=== PATIENT | female | born 1960 | race Caucasian/White ===

== ENCOUNTER 2020-10-17 11:17 | Outpatient (REF) | payer OTHER, SELFPAY | END 2020-10-17 11:18 | disposition home or self-care (01) | LOC: HO.LAB 11:17 | PROVIDERS: Visit Provider Internal Medicine | DX: Z20.828 Contact with and (suspected) exposure to other viral communicable diseases (principal) | CPT/HCPCS: C9803; U0003 ==

== ENCOUNTER 2022-10-20 15:06 | Outpatient (REF) | payer OTHER, SELFPAY ==
--- NOTE | 2022-10-20 09:30 | EMG_ITS ---
Please see scanned EMG / Nerve Conduction Report. MTDD
== END 2022-10-20 15:07 | disposition home or self-care (01) ==
LOC: HO.NEURO 15:06
PROVIDERS: PCP Internal Medicine; Visit Provider Internal Medicine
DX: R20.2 Paresthesia of skin (principal); R20.0 Anesthesia of skin
CPT/HCPCS: 95885; 95910

== ENCOUNTER 2023-08-10 14:25 | Outpatient (AMB) | payer OTHER, SELFPAY ==
[2023-08-10 14:40] VITALS: BP 136/86; PULSE 79; O2SAT 98
--- NOTE | 2023-08-10 14:40 | A.OFFPC_ITS ---
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 Required: No Accompanied by: Self / Same As Patient Allergies azithromycin [From ZITHROMAX] Allergy (Severe, Verified 08/10/23 15:22) RASH/SWELLING amoxicillin [Augmentin] Allergy (Unknown, Verified 08/10/23 15:22) rash, hives clavulanic acid [Augmentin] Allergy (Unknown, Verified 08/10/23 15:22) rash, hives Medication List - Last Reconciled 08/10/23 by Sathish Diaz MD estradiol 0.01%(0.1mg/gram) (Estrace) 1 appful vaginal 3XW 30 days gabapentin 100 mg PO TID 30 days montelukast 10 mg PO BEDTIME 90 days omeprazole 20 mg PO DAILY 90 days sumatriptan succinate 25 mg PO ONCE PRN 90 days Tobacco use date assessed: 08/10/23 Dental Screening Dental Screen Date: 08/10/23 Did you have a dental visit in the last 12 months?: No Did you have a dental problem in the last 6 months where you did not have access to dental care?: No Was dental information given to patient?: No HPI PE HPI Details Patient comes in today for her annual physical examination States that she feels okay She denies any headaches or dizziness Denies any chest pains, no SOB No nausea/vomiting, no abdominal pain No change in bowel habits noted Denies any acute urinary symptoms Had her pap smear / graphic specialist exam last done in November 2022 at [facility] [place] Needs her Estradiol vaginal cream [facility] Medical History Pure hypercholesterolemia Paresthesia Pneumonia due to COVID-19 virus Allergic rhinitis Migraine Asthma Surgical History Status post colonoscopy (~07/16/09) Status post lumbar spinal fusion (~05/16/20) Family History Mother Hypertension Other Substance abuse Social History Housing: House Alcohol intake: current Alcohol intake frequency: holidays/special occasions only Patient Tobacco Use Status: Former Tobacco user e-Cigarette/Vaping Use: Never Used Second Hand Smoke Exposure: Yes service: No Current occupational status: employed Cognitive needs: No Hearing needs: No Vision needs: No Questionnaire PHQ-9 Over the last 2 weeks, how often have you been bothered by any of the following problems? 1. Little interest or pleasure in doing things: several days 2. Feeling down, depressed, or hopeless: not at all 3. Trouble falling or staying asleep, or sleeping too much: not at all 4. Feeling tired or having little energy: not at all 5. Poor appetite or overeating: not at all 6. Feeling bad about yourself - or that you are a failure or have let yourself or your family down: not at all 7. Trouble concentrating on things, such as reading the newspaper or watching television: not at all 8. Moving or speaking so slowly that other people could have noticed. Or the opposite - being so fidgety or restless that you have been moving around a lot more than usual: not at all 9. Thoughts that you would be better off or of hurting yourself in some way: not at all Total score: 1 Depression Screening Interpretation: Negative [id number] - PHQ-9 Billing: Yes Source: Developed by Drs. Rick Ahumada, Sofya Kessler, Zi Roland and colleagues, with an educational sergei from [employer]. Thrive Questionnaire Date Thrive assessed: 08/10/23 I am a: Patient What is your living situation today?: I have a steady place to live Within the past 12 months, did the food you bought not last and you didn't have the money to get more?: Never true Within the past 12 months, did you worry whether your food would run out before you got money to buy more?: Never true Do you have trouble paying for medicines?: No Do you have trouble getting transportation to medical appointments?: No Do you have trouble paying your heating and electricity bill?: No Do you have trouble taking care of your child, family member or friend?: No Do you have trouble with day-to-day activities such as bathing, preparing meals, shopping, managing finances, etc.?: No Are you currently unemployed and looking for a job?: No Are you interested in more education?: No Please select the resources that you would like help with: None Currently or been in a relationship where the following occur: no concerns reported AUDIT C Alcohol Use Questionnaire (AUDIT-C) 1. How often do you have a drink containing alcohol?: Never 3. How often do you have six or more drinks on one occasion?: Never Total Score: 0 Score Reviewed/Action Taken: Yes SVETLANA-7 AMB Questionnaire SVETLANA-7 Date SVETLANA - 7 assessed: 08/10/23 Feeling nervous, anxious, or on edge: 0 = Not at all Not being able to stop or control worryin = Not at all Worrying too much about different things: 0 = Not at all Trouble relaxin = Not at all Being so restless that it is hard to sit still: 0 = Not at all Becoming easily annoyed or irritable: 0 = Not at all Feeling afraid as if something awful might happen: 0 = Not at all Total SVETLANA-7 score (0-4 normal; 5-9 mild; 10-14 moderate; 15-21 severe): 0 Source: Developed by Drs. Rick Ahumada, Sofya Kessler, Zi Roland and colleagues, with an educational sergei from [employer]. Review of Systems Const Denies chills, Denies fatigue, Denies fever(s), Denies headache(s) and Denies malaise Eyes Denies blurry vision, Denies change in vision, Denies irritation and Denies itchy eyes ENT Denies dysphagia, Denies dizziness, Denies otalgia, Denies headache(s), Denies nasal congestion, Denies neck pain, Denies odynophagia, Denies sinus pain and Denies sore throat Card Denies chest pain, Denies rapid heart rate, Denies irregular heart rhythm, Denies palpitations and Denies dyspnea Resp Denies chest congestion, Denies cough, Denies dyspnea and Denies wheezing GI Denies abdominal pain, Denies bloating, Denies constipation, Denies dysphagia, Denies heartburn, Denies diarrhea, Denies nausea, Denies odynophagia and Denies vomiting Denies hematuria, Denies urinary frequency, Denies dysuria, Denies urinary incontinence and Denies urinary urgency Musc Reports back pain, Denies arthralgias, Denies joint swelling, Denies muscle weakness, Denies neck pain and Reports tingling (on and off into the right leg; occasionally in the left leg) Skin/Breast Denies breast pain, Denies breast mass, Denies change in pigmentation, Denies lesions, Denies rash and Denies unusual bruising Neuro Denies dizziness, Denies headache(s), Reports tingling (on and off into the right leg; occasionally in the left leg) and Denies paresthesias Psych Denies anxiety and Denies depression Endo Denies fatigue and Denies palpitations Matt/Lymph Denies easy bruising Aller/Immun Denies itchy eyes and Denies wheezing Physical exam (Primary Care) Vital Signs: Last Vital Signs Pulse 79 08/10/23 14:40 BP 136/86 08/10/23 14:40 Pulse Ox 98 08/10/23 14:40 Oxygen Delivery Method Room Air 08/10/23 14:40 Tobacco/Smoking Status: Tobacco use Status Tobacco use date assessed 08/10/23 08/10/23 14:47 Patient Tobacco Use Status Former Tobacco user 08/10/23 14:47 e-Cigarette/Vaping Use Never Used 08/10/23 14:47 PHQ-9: PHQ-9 Score PHQ-9: Total score 1 08/10/23 15:40 Depression Screening Interpretation: Negative Thrive Assessment: Date of Thrive Assessment Date Thrive assessed 08/10/23 08/10/23 14:47 Currently or been in a relationship where the following occur: no concerns reported Const General: no acute distress, alert and awake Orientation/consciousness: patient oriented x3 HENMT Head: Yes normocephalic and Yes atraumatic Ears: external ears normal, TM's normal bilaterally and EAC's normal General nose exam: No nasal discharge present Face and sinus: Yes normal facial exam and Yes sinuses nontender Teeth and gingiva: dentition normal Throat: Yes posterior oropharynx normal and Yes tonsils normal (no TP congestion) Eyes Eyelids: Yes eyelids normal Conjunctivae: conjunctivae normal Pupils: Equal, round and reactive pupils present EOM: EOMs intact bilaterally Neck Neck: Yes no lymphadenopathy and Yes supple Thyroid: Thyroid normal Resp Auscultation: clear to auscultation bilaterally, no rales and no wheezes Cardio Rate: regular rate Rhythm: regular rhythm Heart sounds: no murmurs GI Palpation (GI): Soft to palpation, nontender and No hepatosplenomegaly present Auscultation: normal bowel sounds General: Yes no CVA tenderness Back/Spine/Pelvis Back: no CVA tenderness Thoracic/Lumbar Spine: thoracic and lumbar spine normal to inspection Skin Lesions: no lesions Rashes: no rashes Neuro General: patient oriented x3, moves all extremities, no focal motor deficits and CN's II-XI intact bilaterally Cranial nerves: Yes Equal, round and reactive pupils present Cognition (Neuro): normal cognition Gait exam (Neuro): Normal gait present Extrem General: Yes no clubbing, cyanosis or edema Assessment and Plan Assessment & Plan (1) Annual physical exam: Code(s): Z00.00 - Encounter for general adult medical examination without abnormal findings Plan: Check labs States that she is up-to-date with annual graphic specialist/ pap smear and screening mammogram - has both of these done at [facility], [place] (2) Pure hypercholesterolemia: Code(s): E78.00 - Pure hypercholesterolemia, unspecified Plan: Reinforced low cholesterol diet Will have patient check his labs and fasting lipids ABBIE follow-up (3) Gastritis: Code(s): K29.70 - Gastritis, unspecified, without bleeding Qualifiers: Gastritis type: unspecified gastritis Chronicity: acute Gastritis bleeding: without bleeding Qualified Code(s): K29.00 - Acute gastritis without bleeding Plan: Reinforced dietary restrictions Continue Omeprazole 20 mg QD PRN (4) Asthma: Code(s): J45.909 - Unspecified asthma, uncomplicated Qualifiers: Asthma severity: moderate Asthma persistence: persistent Asthma complication type: with acute exacerbation Qualified Code(s): J45.41 - Moderate persistent asthma with (acute) exacerbation Plan: Stable Continue Montelukast 10 mg QD and Albuterol HFA 1 to 2 inhalations every 6 hours only as needed (5) Allergic rhinitis: Code(s): J30.9 - Allergic rhinitis, unspecified Qualifiers: Allergic rhinitis trigger: unspecified Allergic rhinitis seasonality: unspecified Qualified Code(s): J30.9 - Allergic rhinitis, unspecified Plan: Montelukast helps with her allergies Also takes OTC Cetirizine 10 mg or Loratadine 10 mg QD PRN (6) Migraine: Code(s): G43.909 - Migraine, unspecified, not intractable, without status migrainosus Qualifiers: Migraine type: unspecified Status migrainosus presence: without status migrainosus Intractability: not intractable Qualified Code(s): G43.909 - Migraine, unspecified, not intractable, without status migrainosus Plan: Stable Continue Sumatriptan 25 mg PRN (7) Paresthesia of right leg: Code(s): R20.2 - Paresthesia of skin Plan: EMG and NCV of the right lower leg done back in September 2022 revealed normal motor and sensory nerve conduction study of the right lower extremity; the EMG of the right L4-S1 innervated muscles are consistent with chronic L4-L5 radiculopathy Continue Gabapentin 100 mg TID for now - states that symptoms have calmed down a lot with Gabapentin Has been referred to [facility] [place] [facility] for further evaluation and management (8) Right foot drop: Code(s): M21.371 - Foot drop, right foot Plan: EMG and NCV done in September 2022 revealed normal motor and sensory nerve conduction study of the right lower extremity but the EMG of the right L4-S1 innervated muscles are consistent with chronic L4-L5 radiculopathy She has been referred to [facility] [place] [facility] for further evaluation and management (9) Atrophic vaginitis: Code(s): N95.2 - Postmenopausal atrophic vaginitis Plan: Continue Estace 0.01% cream apply TIW - Rx refilled (10) Colon cancer screening: Code(s): Z12.11 - Encounter for screening for malignant neoplasm of colon Plan: Patient is due for her repeat colonoscopy but she would like to try doing Cologuard instead at this time - ordered Plan Follow up in 6 months Orders: Orders Lipid Panel 08/10/23 E78.00 - Pure hypercholesterolemia, unspecified, Z00.00 - Encounter for general adult medical examination without abnormal findings Vitamin D 25-OH Total 08/10/23 E55.9 - Vitamin D deficiency, unspecified, Z00.00 - Encounter for general adult medical examination without abnormal findings Vitamin B12 and Folate 08/10/23 E53.8 - Deficiency of other specified B group vitamins, Z00.00 - Encounter for general adult medical examination without abnormal findings MM tomosynthesis screening BI 08/10/23 Z12.31 - Encounter for screening mammogram for malignant neoplasm of breast Complete Blood Count Auto Diff 08/10/23 I10 - Essential (primary) hypertension, Z00.00 - Encounter for general adult medical examination without abnormal findings Comprehensive [place]. Panel Fast 08/10/23 E78.00 - Pure hypercholesterolemia, unspecified, Z00.00 - Encounter for general adult medical examination without abnormal findings TSH reflex Free T4 08/10/23 E78.00 - Pure hypercholesterolemia, unspecified, Z00.00 - Encounter for general adult medical examination without abnormal findings UA CC w/rflx Micro + Cult 08/10/23 R30.0 - Dysuria, Z00.00 - Encounter for general adult medical examination without abnormal findings Referrals Cologuard Test Z12.11 - Encounter for screening for malignant neoplasm of colon, Z12.12 - Encounter for screening for malignant neoplasm of rectum Medications: Refilled estradiol 0.01%(0.1mg/gram) (Estrace) 1 appful vaginal 3XW 30 days 42.5 grams 5RF N95.2 - Postmenopausal atrophic vaginitis Coding Level of Care Code Est Pt Prev Care 40-64y([id number]) Diagnoses Annual physical exam Z00.00 Pure hypercholesterolemia E78.00 Acute gastritis without hemorrhage, unspecified gastritis type K29.00 Gastritis type: unspecified gastritis Chronicity: acute Gastritis bleeding: without bleeding Moderate persistent asthma with acute exacerbation J45.41 Asthma severity: moderate Asthma persistence: persistent Asthma complication type: with acute exacerbation Allergic rhinitis, unspecified seasonality, unspecified trigger J30.9 Allergic rhinitis trigger: unspecified Allergic rhinitis seasonality: unspecified Migraine without status migrainosus, not intractable, unspecified migraine type G43.909 Migraine type: unspecified Status migrainosus presence: without status migrainosus Intractability: not intractable Paresthesia of right leg R20.2 Right foot drop M21.371 Atrophic vaginitis N95.2 Colon cancer screening Z12.11
== END 2023-08-10 15:49 | disposition home or self-care (01) ==
PROVIDERS: Visit Provider Internal Medicine
DX: Z00.00 Encounter for general adult medical examination without abnormal findings (principal); J45.41 Moderate persistent asthma with (acute) exacerbation; G43.909 Migraine, unspecified, not intractable, without status migrainosus; E78.00 Pure hypercholesterolemia, unspecified; K29.00 Acute gastritis without bleeding; J30.9 Allergic rhinitis, unspecified; R20.2 Paresthesia of skin; M21.371 Foot drop, right foot; N95.2 Postmenopausal atrophic vaginitis
CPT/HCPCS: 99396

== ENCOUNTER 2024-03-23 12:11 | Outpatient (AMB) | payer OTHER, SELFPAY ==
--- NOTE | 2024-03-23 12:35 | A.OFFPC_ITS ---
Vital Signs 03/23/24 12:37 Height 4 ft 11 in BMI Reason not done Patient refused/unable BP 128/88 Blood Pressure Location Lt brachial Position Sitting Pulse 86 Pulse Source Pulse Oximeter Pulse Oximetry (%) 97 Oxygen Delivery Method Room Air Intake Visit Reasons: migraine, lumbar DDD Intake Note: Patient is here to follow up on Migraine, LDDD. Talent Acquisition Operations Manager Required: No Human Resources Hr Generalist: Not Required per policy Accompanied by: Self / Same As Patient Allergies azithromycin [From ZITHROMAX] Allergy (Severe, Verified 03/23/24 13:13) RASH/SWELLING amoxicillin [Augmentin] Allergy (Unknown, Verified 03/23/24 13:13) rash, hives clavulanic acid [Augmentin] Allergy (Unknown, Verified 03/23/24 13:13) rash, hives Medication List - Last Reconciled 03/23/24 by Sathish Diaz MD estradiol 0.01%(0.1mg/gram) (Estrace) 1 appful vaginal 3XW 30 days gabapentin 100 mg PO TID 30 days montelukast 10 mg PO BEDTIME 90 days omeprazole 20 mg PO DAILY 90 days sumatriptan succinate 25 mg PO ONCE PRN 90 days Tobacco use date assessed: 03/23/24 Dental Screening Dental Screen Date: 03/23/24 Did you have a dental visit in the last 12 months?: No Did you have a dental problem in the last 6 months where you did not have access to dental care?: No Was dental information given to patient?: Patient has dentist HPI migraine, lumbar DDD HPI Details Patient comes in today for her follow up visit States that she still has her recurrent right-sided low back pain and radicular symptoms but they have been mostly bearable lately States that she was seen by neurosurgery (Dr. Eliecer Arevalo) in [facility] in February or March 2023 and he ordered a repeat MRI of her lumbar spine for further evaluation but her MRI was not approved by her insurance Patient states that as her symptoms seem to have subsided somewhat shortly afterwards, she did not pursue getting an MRI further States that she still has the right foot drop and that this is more prominent later in the day and at night States that she feels okay otherwise and has not been able to get her previously ordered labs done yet States that she also received her Cologuard test kit a while back but has not sent it in yet She denies any headaches or dizziness Denies any chest pains, no increased SOB No nausea/vomiting, no abdominal pain No change in bowel habits noted States that she will need all of her current Rx refilled PFSH Medical History Pure hypercholesterolemia Paresthesia Pneumonia due to COVID-19 virus Allergic rhinitis Migraine Asthma Surgical History Status post colonoscopy (~07/16/09) Status post lumbar spinal fusion (~05/16/20) Family History Mother Hypertension Other Substance abuse Social History Housing: House Alcohol intake: current Alcohol intake frequency: holidays/special occasions only Patient Tobacco Use Status: Former Tobacco user e-Cigarette/Vaping Use: Never Used Second Hand Smoke Exposure: Yes service: No Current occupational status: employed Cognitive needs: No Hearing needs: No Vision needs: Yes (Reading glasses) Questionnaire PHQ-9 Over the last 2 weeks, how often have you been bothered by any of the following problems? 1. Little interest or pleasure in doing things: not at all 2. Feeling down, depressed, or hopeless: not at all 3. Trouble falling or staying asleep, or sleeping too much: not at all 4. Feeling tired or having little energy: not at all 5. Poor appetite or overeating: not at all 6. Feeling bad about yourself - or that you are a failure or have let yourself or your family down: not at all 7. Trouble concentrating on things, such as reading the newspaper or watching television: not at all 8. Moving or speaking so slowly that other people could have noticed. Or the opposite - being so fidgety or restless that you have been moving around a lot more than usual: not at all 9. Thoughts that you would be better off or of hurting yourself in some way: not at all Total score: 0 Depression Screening Interpretation: Negative Depression Screening Done: Yes 57621 - PHQ-9 Billing: Yes Source: Developed by Drs. Rick Ahumada, Sofya Kessler, Zi Roland and colleagues, with an educational sergei from [employer]. Thrive Questionnaire Date Thrive assessed: 03/23/24 I am a: Patient What is your living situation today?: I have a steady place to live Within the past 12 months, did the food you bought not last and you didn't have the money to get more?: Never true Within the past 12 months, did you worry whether your food would run out before you got money to buy more?: Never true Do you have trouble paying for medicines?: No Do you have trouble getting transportation to medical appointments?: No Do you have trouble paying your heating and electricity bill?: No Do you have trouble taking care of your child, family member or friend?: No Do you have trouble with day-to-day activities such as bathing, preparing meals, shopping, managing finances, etc.?: No Are you currently unemployed and looking for a job?: No Are you interested in more education?: No Currently or been in a relationship where the following occur: no concerns repo rted THRIVE Score: 0 AUDIT C Alcohol Use Questionnaire (AUDIT-C) 1. How often do you have a drink containing alcohol?: Never 3. How often do you have six or more drinks on one occasion?: Never Total Score: 0 Score Reviewed/Action Taken: Yes SVETLANA-7 AMB Questionnaire SVETLANA-7 Date SVETLANA - 7 assessed: 03/23/24 Feeling nervous, anxious, or on edge: 0 = Not at all Not being able to stop or control worryin = Not at all Worrying too much about different things: 0 = Not at all Trouble relaxin = Not at all Being so restless that it is hard to sit still: 0 = Not at all Becoming easily annoyed or irritable: 0 = Not at all Feeling afraid as if something awful might happen: 0 = Not at all Total SVETLANA-7 score (0-4 normal; 5-9 mild; 10-14 moderate; 15-21 severe): 0 Source: Developed by Drs. Rick Ahumada, Sofya Kessler, Zi Roland and colleagues, with an educational sergei from [employer]. Review of Systems Const Denies chills, Denies fatigue, Denies fever(s) and Denies headache(s) ENT Denies dysphagia, Denies dizziness, Denies otalgia, Denies headache(s), Denies neck pain, Denies odynophagia and Denies sore throat Card Denies chest pain, Denies rapid heart rate, Denies irregular heart rhythm, Denies palpitations and Denies dyspnea Resp Denies cough, Denies dyspnea and Denies wheezing GI Denies abdominal pain, Denies constipation, Denies dysphagia, Denies heartburn, Denies diarrhea, Denies nausea, Denies odynophagia and Denies vomiting Denies hematuria, Denies urinary frequency, Denies dysuria and Denies urinary urgency Musc Reports back pain, Denies arthralgias, Denies neck pain and Reports tingling (on and off into the right leg; occasionally in the left leg) Skin/Breast Denies rash Neuro Denies dizziness, Denies headache(s), Reports tingling (on and off into the right leg; occasionally in the left leg) and Denies paresthesias Psych Denies anxiety and Denies depression Endo Denies fatigue and Denies palpitations Matt/Lymph Denies easy bruising Aller/Immun Denies wheezing Physical exam (Primary Care) Vital Signs: Last Vital Signs Pulse 86 03/23/24 12:37 BP 128/88 03/23/24 12:37 Pulse Ox 97 03/23/24 12:37 Oxygen Delivery Method Room Air 03/23/24 12:37 Tobacco/Smoking Status: Tobacco use Status Tobacco use date assessed 03/23/24 03/23/24 12:42 Patient Tobacco Use Status Former Tobacco user 03/23/24 12:42 e-Cigarette/Vaping Use Never Used 03/23/24 12:42 PHQ-9: PHQ-9 Score PHQ-9: Total score 0 03/23/24 12:42 Depression Screening Interpretation: Negative Thrive Assessment: Date of Thrive Assessment Date Thrive assessed 03/23/24 03/23/24 12:42 Currently or been in a relationship where the following occur: no concerns reported Const General: no acute distress and alert HENMT Ears: TM's normal bilaterally and EAC's normal Throat: Yes posterior oropharynx normal and Yes tonsils normal (no TP congestion) Neck Neck: Yes no lymphadenopathy and Yes supple Thyroid: Thyroid normal Resp Auscultation: clear to auscultation bilaterally, no rales and no wheezes Cardio Rate: regular rate Rhythm: regular rhythm Heart sounds: no murmurs GI Palpation (GI): Soft to palpation and nontender Auscultation: normal bowel sounds General: Yes no CVA tenderness Back/Spine/Pelvis Back: no CVA tenderness Thoracic/Lumbar Spine: paraspinal muscle tenderness on the right in the mid lumbar and in the lower lumbar and lumbar spinal tenderness Skin Rashes: no rashes Extrem General: Yes no clubbing, cyanosis or edema Assessment and Plan Assessment & Plan (1) Pure hypercholesterolemia: Code(s): E78.00 - Pure hypercholesterolemia, unspecified Plan: Reinforced low cholesterol diet Patient is instructed to go and get her labs and fasting lipids done ABBIE follow-up (2) Gastritis: Code(s): K29.70 - Gastritis, unspecified, without bleeding Qualifiers: Gastritis type: unspecified gastritis Chronicity: acute Gastritis bleeding: without bleeding Qualified Code(s): K29.00 - Acute gastritis without bleeding Plan: Reinforced dietary restrictions Continue Omeprazole 20 mg QD PRN (3) Asthma: Code(s): J45.909 - Unspecified asthma, uncomplicated Qualifiers: Asthma severity: moderate Asthma persistence: persistent Asthma complication type: with acute exacerbation Qualified Code(s): J45.41 - Moderate persistent asthma with (acute) exacerbation Plan: Stable Continue Montelukast 10 mg QD and Albuterol HFA 1 to 2 inhalations every 6 hours only as needed (4) Allergic rhinitis: Code(s): J30.9 - Allergic rhinitis, unspecified Qualifiers: Allergic rhinitis trigger: unspecified Allergic rhinitis seasonality: unspecified Qualified Code(s): J30.9 - Allergic rhinitis, unspecified Plan: Her Montelukast is helping with her allergies She also takes OTC Cetirizine 10 mg or Loratadine 10 mg QD PRN (5) Migraine: Code(s): G43.909 - Migraine, unspecified, not intractable, without status migrainosus Qualifiers: Migraine type: unspecified Status migrainosus presence: without status migrainosus Intractability: not intractable Qualified Code(s): G43.909 - Migraine, unspecified, not intractable, without status migrainosus Plan: Stable Continue Sumatriptan 25 mg PRN (6) Paresthesia of right leg: Code(s): R20.2 - Paresthesia of skin Plan: EMG and NCV of the right lower leg done back in September 2022 revealed normal motor and sensory nerve conduction study of the right lower extremity; the EMG of the right L4-S1 innervated muscles are consistent with chronic L4-L5 radiculopathy Continue Gabapentin 100 mg TID - states that symptoms have calmed down a lot with Gabapentin She has been referred to and is also now seeing [facility] for follow up (7) Right foot drop: Code(s): M21.371 - Foot drop, right foot Plan: EMG and NCV done in September 2022 revealed normal motor and sensory nerve conduction study of the right lower extremity but the EMG of the right L4-S1 innervated muscles are consistent with chronic L4-L5 radiculopathy She is now going to [facility] for neurology follow up (8) Atrophic vaginitis: Code(s): N95.2 - Postmenopausal atrophic vaginitis Plan: Continue Estace 0.01% cream apply TIW - Rx refilled Plan To return in 6 months for her next annual physical examination Medications: Refilled estradiol 0.01%(0.1mg/gram) (Estrace) 1 appful vaginal 3XW 30 days 42.5 grams 5RF N95.2 - Postmenopausal atrophic vaginitis montelukast 10 mg PO BEDTIME 90 days 90 tabs 3RF omeprazole 20 mg PO DAILY 90 days 90 caps 0RF gabapentin 100 mg PO TID 30 days 90 caps 0RF sumatriptan succinate take as instructed. may take 2nd dose after 2 hours if needed. Max of 2 tablets in 24 hours 25 mg PO ONCE 90 days PRN 40 tabs 3RF migraine Coding Level of Care Code Est Pt Level 4 (92422) Diagnoses Pure hypercholesterolemia E78.00 Acute gastritis without hemorrhage, unspecified gastritis type K29.00 Gastritis type: unspecified gastritis Chronicity: acute Gastritis bleeding: without bleeding Moderate persistent asthma with acute exacerbation J45.41 Asthma severity: moderate Asthma persistence: persistent Asthma complication type: with acute exacerbation Allergic rhinitis, unspecified seasonality, unspecified trigger J30.9 Allergic rhinitis trigger: unspecified Allergic rhinitis seasonality: unspecified Migraine without status migrainosus, not intractable, unspecified migraine type G43.909 Migraine type: unspecified Status migrainosus presence: without status migrainosus Intractability: not intractable Paresthesia of right leg R20.2 Right foot drop M21.371 Atrophic vaginitis N95.2
[2024-03-23 12:37] VITALS: BP 128/88; PULSE 86; O2SAT 97
== END 2024-03-23 13:31 | disposition home or self-care (01) ==
PROVIDERS: PCP Internal Medicine; Visit Provider Internal Medicine
DX: E78.00 Pure hypercholesterolemia, unspecified (principal); K29.00 Acute gastritis without bleeding; J45.41 Moderate persistent asthma with (acute) exacerbation; J30.9 Allergic rhinitis, unspecified; G43.909 Migraine, unspecified, not intractable, without status migrainosus; R20.2 Paresthesia of skin; M21.371 Foot drop, right foot; N95.2 Postmenopausal atrophic vaginitis
CPT/HCPCS: 99214

== ENCOUNTER 2024-10-02 16:26 | Outpatient (AMB) | payer OTHER, SELFPAY ==
[2024-10-02 16:26] VITALS: BP 122/84; PULSE 82; O2SAT 97
--- NOTE | 2024-10-02 16:26 | MHC.PC.OV ---
Vital Signs 10/02/24 16:26 Height 4 ft 11 in BP 122/84 Blood Pressure Location Lt brachial Position Sitting Pulse 82 Pulse Source Pulse Oximeter Pulse Oximetry (%) 97 Oxygen Delivery Method Room Air Intake Visit Reasons: annual PE Special Events Coordinator Required: No Accompanied by: Self / Same As Patient Allergies azithromycin [From ZITHROMAX] Allergy (Severe, Verified 10/02/24 17:01) RASH/SWELLING amoxicillin [Augmentin] Allergy (Unknown, Verified 10/02/24 17:01) rash, hives clavulanic acid [Augmentin] Allergy (Unknown, Verified 10/02/24 17:01) rash, hives Medication List - Last Reconciled 10/02/24 by Sathish Diaz MD estradiol 0.01%(0.1mg/gram) (Estrace) 1 appful vaginal 3XW 30 days gabapentin 100 mg PO TID 30 days montelukast 10 mg PO BEDTIME 90 days omeprazole 20 mg PO DAILY 90 days sumatriptan succinate 25 mg PO ONCE PRN 90 days Tobacco use date assessed: 10/02/24 Dental Screening Dental Screen Date: 10/02/24 Did you have a dental visit in the last 12 months?: No Did you have a dental problem in the last 6 months where you did not have access to dental care?: No Was dental information given to patient?: No HPI annual PE HPI Details Patient comes in today for her annual physical examination States that she sprained her left ankle months ago and she currently still has on and off pain in her left ankle pain She has also been experiencing recurrent tingling sensation in the right hand as well as pain over her right wrist States that she still has recurrent right-sided low back pain and radicular symptoms as well but they have been mostly bearable lately Still has the right foot drop that this is more prominent later in the day and at night States that she feels okay otherwise She denies any headaches or dizziness Denies any chest pains, no increased shortness of breath No nausea/vomiting, no abdominal pain No change in bowel habits noted She denies any acute urinary symptoms She had her follow-up labs done at [facility] back in March 2024 She had her annual pap smear and gynecology exam done earlier this year Her annual mammogram was last done in November 2023 Her last screening colonoscopy was done in 2008 and she asked for Cologuard testing last year but she never got the test done and it - states that she would like to have her Cologuard test ordered again [facility] Medical History (Updated 10/07/24 @ 16:16 by Sathish Diaz MD) Lumbar degenerative disc disease Osteoporosis Chronic right-sided lumbar radiculopathy Pure hypercholesterolemia Paresthesia Pneumonia due to COVID-19 virus Allergic rhinitis Migraine Asthma Surgical History Status post colonoscopy (~07/16/09) Status post lumbar spinal fusion (~05/16/20) Family History Mother Hypertension Other Substance abuse Social History Housing: House Alcohol intake: current Alcohol intake frequency: holidays/special occasions only Patient Tobacco Use Status: Former Tobacco user e-Cigarette/Vaping Use: Never Used Second Hand Smoke Exposure: Yes service: No Current occupational status: employed Cognitive needs: No Hearing needs: No Vision needs: Yes (Reading glasses) Questionnaire PHQ-9 Over the last 2 weeks, how often have you been bothered by any of the following problems? 1. Little interest or pleasure in doing things: not at all 2. Feeling down, depressed, or hopeless: not at all 3. Trouble falling or staying asleep, or sleeping too much: not at all 4. Feeling tired or having little energy: not at all 5. Poor appetite or overeating: not at all 6. Feeling bad about yourself - or that you are a failure or have let yourself or your family down: not at all 7. Trouble concentrating on things, such as reading the newspaper or watching television: not at all 8. Moving or speaking so slowly that other people could have noticed. Or the opposite - being so fidgety or restless that you have been moving around a lot more than usual: not at all 9. Thoughts that you would be better off or of hurting yourself in some way: not at all Total score: 0 Depression Screening Interpretation: Negative Depression Screening Done: Yes 62945 - PHQ-9 Billing: Yes Source: Developed by Sofya Niño, Zi Roland and colleagues, with an educational sergei from [employer]. Thrive Questionnaire Date Thrive assessed: 10/02/24 I am a: Patient What is your living situation today?: I have a steady place to live Within the past 12 months, did the food you bought not last and you didn't have the money to get more?: Never true Within the past 12 months, did you worry whether your food would run out before you got money to buy more?: Never true Do you have trouble paying for medicines?: No Do you have trouble getting transportation to medical appointments?: No Do you have trouble paying your heating and electricity bill?: No Do you have trouble taking care of your child, family member or friend?: No Do you have trouble with day-to-day activities such as bathing, preparing meals, shopping, managing finances, etc.?: No Are you currently unemployed and looking for a job?: No Are you interested in more education?: No Please select the resources that you would like help with: None Currently or been in a relationship where the following occur: No concerns reported THRIVE Score: 0 AUDIT C Alcohol Use Questionnaire (AUDIT-C) 1. How often do you have a drink containing alcohol?: Never 3. How often do you have six or more drinks on one occasion?: Never Total Score: 0 Score Reviewed/Action Taken: Yes SVETLANA-7 AMB Questionnaire SVETLANA-7 Date SVETLANA - 7 assessed: 10/02/24 Feeling nervous, anxious, or on edge: 0 = Not at all Not being able to stop or control worryin = Not at all Worrying too much about different things: 0 = Not at all Trouble relaxin = Not at all Being so restless that it is hard to sit still: 0 = Not at all Becoming easily annoyed or irritable: 0 = Not at all Feeling afraid as if something awful might happen: 0 = Not at all Total SEVTLANA-7 score (0-4 normal; 5-9 mild; 10-14 moderate; 15-21 severe): 0 Source: Developed by Sofya Niño, Zi Roland and colleagues, with an educational sergei from [employer]. Review of Systems Const Denies chills, Denies fatigue, Denies fever(s) and Denies headache(s) Eyes Denies blurry vision, Denies change in vision, Denies irritation and Denies itchy eyes ENT Denies dysphagia, Denies dizziness, Denies otalgia, Denies headache(s), Denies neck pain, Denies odynophagia and Denies sore throat Card Denies chest pain, Denies rapid heart rate, Denies irregular heart rhythm, Denies palpitations and Denies dyspnea Resp Denies chest congestion, Denies cough, Denies dyspnea and Denies wheezing GI Denies abdominal pain, Denies constipation, Denies dysphagia, Denies heartburn, Denies diarrhea, Denies nausea, Denies odynophagia and Denies vomiting Denies hematuria, Denies urinary frequency, Denies dysuria and Denies urinary urgency Musc Reports back pain, Reports arthralgias (left ankle, right wrist - see HPI), Denies neck pain and Reports tingling (on and off into the right leg; occasionally in the left leg) Skin/Breast Denies lesions and Denies rash Neuro Denies dizziness, Denies headache(s), Reports tingling (on and off into the right leg; occasionally in the left leg) and Denies paresthesias Psych Denies anxiety and Denies depression Endo Denies fatigue and Denies palpitations Matt/Lymph Denies easy bruising Aller/Immun Denies itchy eyes and Denies wheezing Physical exam (Primary Care) Vital Signs: Last Vital Signs Pulse 82 10/02/24 16:26 BP 122/84 10/02/24 16:26 Pulse Ox 97 10/02/24 16:26 Oxygen Delivery Method Room Air 10/02/24 16:26 Tobacco/Smoking Status: Tobacco use Status Tobacco use date assessed 10/02/24 10/02/24 16:28 Patient Tobacco Use Status Former Tobacco user 10/02/24 16:28 e-Cigarette/Vaping Use Never Used 10/02/24 16:28 PHQ-9: PHQ-9 Score PHQ-9: Total score 0 10/02/24 16:56 Depression Screening Interpretation: Negative Thrive Assessment: Date of Thrive Assessment Date Thrive assessed 10/02/24 10/02/24 16:28 Currently or been in a relationship where the following occur: No concerns reported Const General: no acute distress, alert and awake Orientation/consciousness: patient oriented x3 HENMT Head: Yes normocephalic and Yes atraumatic Ears: external ears normal, TM's normal bilaterally and EAC's normal General nose exam: No nasal discharge present Face and sinus: Yes normal facial exam and Yes sinuses nontender Teeth and gingiva: dentition normal Throat: Yes posterior oropharynx normal and Yes tonsils normal (no TP congestion) Eyes Eyelids: Yes eyelids normal Conjunctivae: conjunctivae normal Pupils: Equal, round and reactive pupils present EOM: EOMs intact bilaterally Neck Neck: Yes no lymphadenopathy and Yes supple Thyroid: Thyroid normal Resp Auscultation: clear to auscultation bilaterally, no rales and no wheezes Cardio Rate: regular rate Rhythm: regular rhythm Heart sounds: no murmurs GI Palpation (GI): Soft to palpation, nontender and No hepatosplenomegaly present Auscultation: normal bowel sounds General: Yes no CVA tenderness Back/Spine/Pelvis Back: no CVA tenderness Thoracic/Lumbar Spine: paraspinal muscle tenderness on the right in the mid lumbar and in the lower lumbar and lumbar spinal tenderness Skin Lesions: no lesions Rashes: no rashes Neuro General: patient oriented x3, moves all extremities, no focal motor deficits and CN's II-XI intact bilaterally Cranial nerves: Yes Equal, round and reactive pupils present Cognition (Neuro): normal cognition Gait exam (Neuro): Normal gait present Extrem General: Yes no clubbing, cyanosis or edema Coding Level of Care Code Est Pt Prev Care 40-64y(04536) Diagnoses Annual physical exam Z00.00 Pure hypercholesterolemia E78.00 Acute gastritis without hemorrhage, unspecified gastritis type K29.00 Gastritis type: unspecified gastritis Chronicity: acute Gastritis bleeding: without bleeding Moderate persistent asthma with acute exacerbation J45.41 Asthma severity: moderate Asthma persistence: persistent Asthma complication type: with acute exacerbation Allergic rhinitis, unspecified seasonality, unspecified trigger J30.9 Allergic rhinitis trigger: unspecified Allergic rhinitis seasonality: unspecified Migraine without status migrainosus, not intractable, unspecified migraine type G43.909 Migraine type: unspecified Status migrainosus presence: without status migrainosus Intractability: not intractable Degeneration of intervertebral disc of lumbar region with discogenic back pain and lower extremity pain M51.362 Disc-related pain type: discogenic back pain and lower extremity pain Chronic right-sided lumbar radiculopathy M54.16 Right foot drop M21.371 Age-related osteoporosis without current pathological fracture M81.0 Osteoporosis type: age-related Presence of current pathological fracture: without current pathological fracture Atrophic vaginitis N95.2 Colon cancer screening Z12.11 Additional Codes PHQ-9 - 80877 - PHQ-9 Billing: Yes ([id number]) Assessment & Plan Assessment & Plan (1) Annual physical exam: Code(s): Z00.00 - Encounter for general adult medical examination without abnormal findings Category: Medical Plan: Results of her labs done back in March 2024 reviewed and discussed with patient She is up-to-date with her yearly gynecology exam and pap smear She is due for her colon cancer screening and she prefers to try doing a Cologuard test again She will also be due for her annual mammography and we will order it now and this can be done when it is due in early November 2024 (2) Pure hypercholesterolemia: Code(s): E78.00 - Pure hypercholesterolemia, unspecified Category: Medical Plan: Results of her labs done back in March 2024 reviewed and discussed with patient Reinforced low-cholesterol diet Will have patient recheck her labs and fasting lipids in 6 months for follow-up (3) Gastritis: Code(s): K29.70 - Gastritis, unspecified, without bleeding Category: Medical Qualifiers: Gastritis type: unspecified gastritis Chronicity: acute Gastritis bleeding: without bleeding Qualified Code(s): K29.00 - Acute gastritis without bleeding Plan: Reinforced dietary restrictions Continue Omeprazole 20 mg QD PRN (4) Asthma: Code(s): J45.909 - Unspecified asthma, uncomplicated Category: Medical Qualifiers: Asthma severity: moderate Asthma persistence: persistent Asthma complication type: with acute exacerbation Qualified Code(s): J45.41 - Moderate persistent asthma with (acute) exacerbation Plan: Stable Continue Montelukast 10 mg QD and Albuterol HFA 1 to 2 inhalations every 6 hours only as needed (5) Allergic rhinitis: Code(s): J30.9 - Allergic rhinitis, unspecified Category: Medical Qualifiers: Allergic rhinitis trigger: unspecified Allergic rhinitis seasonality: unspecified Qualified Code(s): J30.9 - Allergic rhinitis, unspecified Plan: Her Montelukast is helping with her allergies She also takes OTC Cetirizine 10 mg or Loratadine 10 mg QD PRN (6) Migraine: Code(s): G43.909 - Migraine, unspecified, not intractable, without status migrainosus Category: Medical Qualifiers: Migraine type: unspecified Status migrainosus presence: without status migrainosus Intractability: not intractable Qualified Code(s): G43.909 - Migraine, unspecified, not intractable, without status migrainosus Plan: Stable Reinforced avoidance of any potential migraine triggers Continue Sumatriptan 25 mg PRN (7) Lumbar degenerative disc disease: Code(s): M51.369 - Other intervertebral disc degeneration, lumbar region without mention of lumbar back pain or lower extremity pain Category: Medical Qualifiers: Disc-related pain type: discogenic back pain and lower extremity pain Qualified Code(s): M51.362 - Other intervertebral disc degeneration, lumbar region with discogenic back pain and lower extremity pain Plan: Reinforced activity and weight lifting restrictions MRI of the lumbar spine done back in 2017 revealed (+) bilateral L5 spondylolysis with grade 1 anterolisthesis of L5 on S1. There is [id number] bilateral foraminal stenosis abutting the exiting L5 nerve root. There is also a left foraminal to extraforaminal disc protrusion potentially abutting the extraforaminal exiting left L3 nerve root at L3-L4 and there is mild levoconvex lumbar scoliosis noted Due to her increasing low back pain and right lumbar radicular symptoms, will try sending her for repeat MRI of the lumbar spine for further evaluation (8) Chronic right-sided lumbar radiculopathy: Code(s): M54.16 - Radiculopathy, lumbar region Category: Medical Plan: EMG and NCV of the right lower leg done back in September 2022 revealed normal motor and sensory nerve conduction study of the right lower extremity; the EMG of the right L4-S1 innervated muscles are consistent with chronic L4-L5 radiculopathy Continue Gabapentin 100 mg TID - states that symptoms have calmed down a lot with Gabapentin She has been referred to and is also now seeing [facility] for follow up regularly (9) Right foot drop: Code(s): M21.371 - Foot drop, right foot Category: Medical Plan: EMG and NCV done in September 2022 revealed normal motor and sensory nerve conduction study of the right lower extremity but the EMG of the right L4-S1 innervated muscles are consistent with chronic L4-L5 radiculopathy She is now going to [facility] for neurology follow up (10) Osteoporosis: Code(s): M81.0 - Age-related osteoporosis without current pathological fracture Category: Medical Qualifiers: Osteoporosis type: age-related Presence of current pathological fracture: without current pathological fracture Qualified Code(s): M81.0 - Age-related osteoporosis without current pathological fracture Plan: Her bone density scan done back in 2018 revealed (+) osteoporosis based on the lowest T-score of-2.6 in the lumbar spine Reinforced fall precautions Patient is again reminded to continue taking her daily vitamin-D supplements and oral calcium supplements Will send her for repeat bone density for follow-up she is overdue for this (11) Atrophic vaginitis: Code(s): N95.2 - Postmenopausal atrophic vaginitis Category: Medical Plan: Continue Estace 0.01% cream apply TIW (12) Colon cancer screening: Code(s): Z12.11 - Encounter for screening for malignant neoplasm of colon Category: Medical Plan: Patient declines referral for screening colonoscopy but agrees to have a Cologuard test done again - Cologuard ordered Plan Follow up in 6 months Orders: Orders MR lumbar spine wo con 10/02/24 M54.16 - Radiculopathy, lumbar region Comprehensive Victor. Panel Fast 6 Months E78.00 - Pure hypercholesterolemia, unspecified Vitamin D 25-OH Total 6 Months E55.9 - Vitamin D deficiency, unspecified Collagen Crosslinks NTX 6 Months M81.0 - Age-related osteoporosis without current pathological fracture MM tomosynthesis screening BI 24 Z12.31 - Encounter for screening mammogram for malignant neoplasm of breast XR DEXA axial skeleton 24 M81.0 - Age-related osteoporosis without current pathological fracture, Z78.0 - Asymptomatic menopausal state Complete Blood Count Auto Diff 6 Months D64.9 - Anemia, unspecified Lipid Panel 6 Months E78.00 - Pure hypercholesterolemia, unspecified TSH reflex Free T4 6 Months E78.00 - Pure hypercholesterolemia, unspecified UA CC w/rflx Micro + Cult 6 Months R30.0 - Dysuria Referrals Cologuard Test Z12.11 - Encounter for screening for malignant neoplasm of colon, Z12.12 - Encounter for screening for malignant neoplasm of rectum Medications: Refilled estradiol 0.01%(0.1mg/gram) (Estrace) 1 appful vaginal 3XW 30 days 42.5 grams 5RF N95.2 - Postmenopausal atrophic vaginitis gabapentin 100 mg PO TID 30 days 90 caps 1RF
== END 2024-10-02 17:23 | disposition home or self-care (01) ==
PROVIDERS: PCP Internal Medicine; Visit Provider Internal Medicine
DX: Z00.00 Encounter for general adult medical examination without abnormal findings (principal); E78.00 Pure hypercholesterolemia, unspecified; K29.00 Acute gastritis without bleeding; J45.41 Moderate persistent asthma with (acute) exacerbation; J30.9 Allergic rhinitis, unspecified; G43.909 Migraine, unspecified, not intractable, without status migrainosus; M51.362 Other intervertebral disc degeneration, lumbar region with discogenic back pain and lower extremity pain; M54.16 Radiculopathy, lumbar region; M21.371 Foot drop, right foot; M81.0 Age-related osteoporosis without current pathological fracture; N95.2 Postmenopausal atrophic vaginitis; Z12.11 Encounter for screening for malignant neoplasm of colon

== ENCOUNTER → 2024-10-02 16:26 | Outpatient (BNVA) | payer OTHER, SELFPAY | PROVIDERS: PCP Internal Medicine; Visit Provider Internal Medicine | DX: Z00.00 Encounter for general adult medical examination without abnormal findings (principal); E78.00 Pure hypercholesterolemia, unspecified; K29.00 Acute gastritis without bleeding; J45.41 Moderate persistent asthma with (acute) exacerbation; J30.9 Allergic rhinitis, unspecified; G43.909 Migraine, unspecified, not intractable, without status migrainosus; M51.362 Other intervertebral disc degeneration, lumbar region with discogenic back pain and lower extremity pain; M54.16 Radiculopathy, lumbar region; M21.371 Foot drop, right foot; M81.0 Age-related osteoporosis without current pathological fracture; N95.2 Postmenopausal atrophic vaginitis; Z79.899 Other long term (current) drug therapy | CPT/HCPCS: 96127 ==

== ENCOUNTER 2025-03-25 16:16 | Outpatient (AMB) | payer OTHER, SELFPAY ==
[2025-03-25 16:49] VITALS: BP 130/80; PULSE 90; O2SAT 99
--- NOTE | 2025-03-25 16:49 | A.OFFPC_ITS ---
Vital Signs 03/25/25 16:49 Height 4 ft 11 in BMI Reason not done Patient refused/unable BP 130/80 Blood Pressure Location Lt brachial Position Sitting Pulse 90 Pulse Source Pulse Oximeter Pulse Oximetry (%) 99 Oxygen Delivery Method Room Air Intake Visit Reasons: 6 month f/u Band Sewer Required: No Accompanied by: Self / Same As Patient Allergies azithromycin [From ZITHROMAX] Allergy (Severe, Verified 03/25/25 17:33) RASH/SWELLING amoxicillin [Augmentin] Allergy (Unknown, Verified 03/25/25 17:33) rash, hives clavulanic acid [Augmentin] Allergy (Unknown, Verified 03/25/25 17:33) rash, hives Medication List - Last Reconciled 03/25/25 by Sathish Diaz MD estradiol 0.01%(0.1mg/gram) (Estrace) 1 appful vaginal 3XW 30 days fluticasone propion-salmeterol 250-50 mcg/dose (Wixela Inhub) 1 inh inhalation BID gabapentin 100 mg PO TID 30 days montelukast 10 mg PO BEDTIME 90 days omeprazole 20 mg PO DAILY 90 days sumatriptan succinate 25 mg PO ONCE PRN 90 days Tobacco use date assessed: 03/25/25 Dental Screening Dental Screen Date: 03/25/25 HPI 6 month f/u HPI Details Patient comes in today for her follow up visit States that she went to the walk-in at [facility] a couple of months ago for increasing cough and congestion and SOB States that the first time he went there, she was prescribed an unrecalled Abx She was started on Wixela when she went back a second time a few days later for the same complaints Patient states that she is currently feeling better and that her cough has mostly improved Adds that she has been experiencing on and off dizziness for a while now Recalls using some motion sickness patches when she was on a cruise in the past that helped a lot with her dizziness and would like to see if she can try them again now to help with her symptoms She denies any headaches Denies any chest pains, no increased shortness of breath No nausea/vomiting, no abdominal pain No change in bowel habits noted Needs a couple of her Rx refilled She was not able to get her follow up labs done prior to her appointment today [facility] Medical History Lumbar degenerative disc disease Osteoporosis Chronic right-sided lumbar radiculopathy Pure hypercholesterolemia Paresthesia Pneumonia due to COVID-19 virus Allergic rhinitis Migraine Asthma Surgical History Status post colonoscopy (~07/16/09) Status post lumbar spinal fusion (~05/16/20) Family History Mother Hypertension Other Substance abuse Social History Housing: House Alcohol intake: current Alcohol intake frequency: holidays/special occasions only Patient Tobacco Use Status: Former Tobacco user e-Cigarette/Vaping Use: Never Used Second Hand Smoke Exposure: Yes service: No Current occupational status: employed Cognitive needs: No Hearing needs: No Vision needs: Yes (Reading glasses) Questionnaire PHQ-9 Over the last 2 weeks, how often have you been bothered by any of the following problems? 1. Little interest or pleasure in doing things: not at all 2. Feeling down, depressed, or hopeless: not at all 3. Trouble falling or staying asleep, or sleeping too much: not at all 4. Feeling tired or having little energy: not at all 5. Poor appetite or overeating: not at all 6. Feeling bad about yourself - or that you are a failure or have let yourself or your family down: not at all 7. Trouble concentrating on things, such as reading the newspaper or watching television: not at all 8. Moving or speaking so slowly that other people could have noticed. Or the opposite - being so fidgety or restless that you have been moving around a lot more than usual: not at all 9. Thoughts that you would be better off or of hurting yourself in some way: not at all Total score: 0 Depression Screening Interpretation: Negative Depression Screening Done: Yes 42681 - PHQ-9 Billing: Yes Source: Developed by Drs. Rick Ahumada, Sofya Kessler, Zi Roland and colleagues, with an educational sergei from [employer]. Thrive Questionnaire Date Thrive assessed: 03/25/25 I am a: Patient What is your living situation today?: I have a steady place to live Within the past 12 months, did the food you bought not last and you didn't have the money to get more?: Never true Within the past 12 months, did you worry whether your food would run out before you got money to buy more?: Never true Do you have trouble paying for medicines?: I choose not to answer this question Do you have trouble getting transportation to medical appointments?: No Do you have trouble paying your heating and electricity bill?: No Do you have trouble taking care of your child, family member or friend?: No Do you have trouble with day-to-day activities such as bathing, preparing meals, shopping, managing finances, etc.?: No Are you currently unemployed and looking for a job?: No Are you interested in more education?: No Please select the resources that you would like help with: None Currently or been in a relationship where the following occur: I choose not to answer THRIVE Score: 0 AUDIT C Alcohol Use Questionnaire (AUDIT-C) 1. How often do you have a drink containing alcohol?: Monthly or less 2. How many drinks containing alcohol do you have on a typical day when you are drinking?: 1 or 2 3. How often do you have six or more drinks on one occasion?: Never Total Score: 1 Score Reviewed/Action Taken: Yes SVETLANA-7 AMB Questionnaire SVETLANA-7 Date SVETLANA - 7 assessed: 03/25/25 Feeling nervous, anxious, or on edge: 0 = Not at all Not being able to stop or control worryin = Not at all Worrying too much about different things: 0 = Not at all Trouble relaxin = Several days Being so restless that it is hard to sit still: 0 = Not at all Becoming easily annoyed or irritable: 0 = Not at all Feeling afraid as if something awful might happen: 0 = Not at all Total SVETLANA-7 score (0-4 normal; 5-9 mild; 10-14 moderate; 15-21 severe): 1 Source: Developed by Drs. Rick Ahumada, Sofya Kessler, Zi Roland and colleagues, with an educational sergei from [employer]. Review of Systems Const Denies chills, Denies fatigue, Denies fever(s) and Denies headache(s) ENT Denies dysphagia, Reports dizziness (on and off), Denies otalgia, Denies headache(s), Denies neck pain, Denies odynophagia and Denies sore throat Card Denies chest pain, Denies rapid heart rate, Denies irregular heart rhythm, Denies palpitations and Denies dyspnea Resp Denies chest congestion, Reports cough (on and off), Denies dyspnea and Denies wheezing GI Denies abdominal pain, Denies constipation, Denies dysphagia, Denies heartburn, Denies diarrhea, Denies nausea, Denies odynophagia and Denies vomiting Denies hematuria, Denies urinary frequency, Denies dysuria and Denies urinary urgency Musc Reports back pain, Denies neck pain, Reports numbness (right leg - chronic) and Reports tingling (on and off in the right leg; occasionally in the left leg) Skin/Breast Denies lesions and Denies rash Neuro Reports dizziness (on and off), Denies headache(s), Reports numbness (right leg - chronic), Reports tingling (on and off in the right leg; occasionally in the left leg) and Denies paresthesias Psych Denies anxiety and Denies depression Endo Denies fatigue and Denies palpitations Matt/Lymph Denies easy bruising Aller/Immun Denies wheezing Physical exam (Primary Care) Vital Signs: Last Vital Signs Pulse 90 03/25/25 16:49 BP 130/80 03/25/25 16:49 Pulse Ox 99 03/25/25 16:49 Oxygen Delivery Method Room Air 03/25/25 16:49 Tobacco/Smoking Status: Tobacco use Status Tobacco use date assessed 03/25/25 03/25/25 16:56 Patient Tobacco Use Status Former Tobacco user 03/25/25 16:56 e-Cigarette/Vaping Use Never Used 03/25/25 16:56 PHQ-9: PHQ-9 Score PHQ-9: Total score 0 04/01/25 06:14 Depression Screening Interpretation: Negative Thrive Assessment: Date of Thrive Assessment Date Thrive assessed 03/25/25 03/25/25 16:56 Currently or been in a relationship where the following occur: I choose not to answer Const General: no acute distress and alert HENMT Ears: TM's normal bilaterally and EAC's normal Throat: Yes posterior oropharynx normal and Yes tonsils normal (no TP congest ion) Neck Neck: Yes no lymphadenopathy and Yes supple Thyroid: Thyroid normal Resp Auscultation: no rales, rhonchi (occasional) throughout, no wheezes and diminished lung sounds (slightly) bilateral Cardio Rate: regular rate Rhythm: regular rhythm Heart sounds: no murmurs GI Palpation (GI): Soft to palpation and nontender Auscultation: normal bowel sounds General: Yes no CVA tenderness Back/Spine/Pelvis Back: no CVA tenderness Thoracic/Lumbar Spine: paraspinal muscle tenderness on the right in the mid lumbar and in the lower lumbar and lumbar spinal tenderness Skin Rashes: no rashes Extrem General: Yes no clubbing, cyanosis or edema Coding Level of Care Code Est Pt Level 4 (18560) Diagnoses Pure hypercholesterolemia E78.00 Acute gastritis without hemorrhage, unspecified gastritis type K29.00 Gastritis type: unspecified gastritis Chronicity: acute Gastritis bleeding: without bleeding Moderate persistent asthma with acute exacerbation J45.41 Asthma severity: moderate Asthma persistence: persistent Asthma complication type: with acute exacerbation Allergic rhinitis, unspecified seasonality, unspecified trigger J30.9 Allergic rhinitis trigger: unspecified Allergic rhinitis seasonality: unspecified Migraine without status migrainosus, not intractable, unspecified migraine type G43.909 Migraine type: unspecified Status migrainosus presence: without status migrainosus Intractability: not intractable Dizziness R42 Degeneration of intervertebral disc of lumbar region with discogenic back pain and lower extremity pain M51.362 Disc-related pain type: discogenic back pain and lower extremity pain Chronic right-sided lumbar radiculopathy M54.16 Right foot drop M21.371 Age-related osteoporosis without current pathological fracture M81.0 Osteoporosis type: age-related Presence of current pathological fracture: without current pathological fracture Atrophic vaginitis N95.2 Additional Codes PHQ-9 - 82698 - PHQ-9 Billing: Yes ([id number]) Assessment & Plan Assessment & Plan (1) Pure hypercholesterolemia: Code(s): E78.00 - Pure hypercholesterolemia, unspecified Category: Medical Plan: Patient was not able to get her follow up labs done yet - have again advised her to try to get these done ABBIE Reinforced low-cholesterol diet (2) Gastritis: Code(s): K29.70 - Gastritis, unspecified, without bleeding Category: Medical Qualifiers: Gastritis type: unspecified gastritis Chronicity: acute Gastritis bleeding: without bleeding Qualified Code(s): K29.00 - Acute gastritis without bleeding Plan: Reinforced dietary restrictions Continue Omeprazole 20 mg QD PRN (3) Asthma: Code(s): J45.909 - Unspecified asthma, uncomplicated Category: Medical Qualifiers: Asthma severity: moderate Asthma persistence: persistent Asthma complication type: with acute exacerbation Qualified Code(s): J45.41 - Moderate persistent asthma with (acute) exacerbation Plan: She's had frequent exacerbations/flare ups of her asthma over the past few months but this now appears to be getting back under control Continue Montelukast 10 mg QD and Albuterol HFA 1 to 2 inhalations every 6 hours only as needed (4) Allergic rhinitis: Code(s): J30.9 - Allergic rhinitis, unspecified Category: Medical Qualifiers: Allergic rhinitis trigger: unspecified Allergic rhinitis seasonality: unspecified Qualified Code(s): J30.9 - Allergic rhinitis, unspecified Plan: Her Montelukast is also helping with her allergies She also takes OTC Cetirizine 10 mg or Loratadine 10 mg QD PRN (5) Migraine: Code(s): G43.909 - Migraine, unspecified, not intractable, without status migrainosus Category: Medical Qualifiers: Migraine type: unspecified Status migrainosus presence: without status migrainosus Intractability: not intractable Qualified Code(s): G43.909 - Migraine, unspecified, not intractable, without status migrainosus Plan: Stable/controlled Reinforced avoidance of all potential migraine triggers Continue Sumatriptan 25 mg PRN (6) Dizziness: Code(s): R42 - Dizziness and giddiness Category: Medical Plan: Recurrent Per request, will try her on Scopolamine patches for her dizziness (7) Lumbar degenerative disc disease: Code(s): M51.369 - Other intervertebral disc degeneration, lumbar region without mention of lumbar back pain or lower extremity pain Category: Medical Qualifiers: Disc-related pain type: discogenic back pain and lower extremity pain Qualified Code(s): M51.362 - Other intervertebral disc degeneration, lumbar region with discogenic back pain and lower extremity pain Plan: Reinforced activity and weight lifting restrictions MRI of the lumbar spine done back in 2018 revealed (+) bilateral L5 spondylolysis with grade 1 anterolisthesis of L5 on S1. There is [id number] bilateral foraminal stenosis abutting the exiting L5 nerve root. There is also a left foraminal to extraforaminal disc protrusion potentially abutting the extraforaminal exiting left L3 nerve root at L3-L4 and there is mild levoconvex lumbar scoliosis noted Due to her increasing low back pain and right lumbar radicular symptoms, we sent patient for repeat MRI of the lumbar spine for further evaluation Patient states that she has not yet gotten this done and will try to call [facility] to get this scheduled ABBIE (8) Chronic right-sided lumbar radiculopathy: Code(s): M54.16 - Radiculopathy, lumbar region Category: Medical Plan: EMG and NCV of the right lower leg done back in September 2022 revealed normal motor and sensory nerve conduction study of the right lower extremity; the EMG of the right L4-S1 innervated muscles are consistent with chronic L4-L5 radiculopathy Continue Gabapentin 100 mg TID - states that symptoms have calmed down a lot with Gabapentin She has been referred to and is also now seeing [facility] for follow up regularly (9) Right foot drop: Code(s): M21.371 - Foot drop, right foot Category: Medical Plan: EMG and NCV done in September 2022 revealed normal motor and sensory nerve conduction study of the right lower extremity but the EMG of the right L4-S1 innervated muscles are consistent with chronic L4-L5 radiculopathy She is now going to [facility] for neurology follow up (10) Osteoporosis: Code(s): M81.0 - Age-related osteoporosis without current pathological fracture Category: Medical Qualifiers: Osteoporosis type: age-related Presence of current pathological fracture: without current pathological fracture Qualified Code(s): M81.0 - Age- related osteoporosis without current pathological fracture Plan: Her bone density scan done back in 2017 revealed (+) osteoporosis based on the lowest T-score of-2.6 in the lumbar spine Reinforced fall precautions Patient is again reminded to continue taking her daily vitamin-D supplements and oral calcium supplements We sent her for repeat bone density for follow-up at her last visit but she also has not yet gotten this scheduled (11) Atrophic vaginitis: Code(s): N95.2 - Postmenopausal atrophic vaginitis Category: Medical Plan: Continue Estace 0.01% cream apply TIW - Rx refilled Plan Follow up in 6 months Medications: New scopolamine base (Transderm-Scop) 1 patch transdermal Q3D PRN 10 ea 0RF nausea and vomiting/motion sickness Refilled gabapentin 100 mg PO TID 90 caps 1RF 30 days montelukast 10 mg PO BEDTIME 90 tabs 3RF 90 days estradiol 0.01%(0.1mg/gram) (Estrace) 1 appful vaginal 3XW 42.5 grams 5RF 30 days N95.2 - Postmenopausal atrophic vaginitis
--- OUTSIDE RECORDS SUMMARY | 2025-03-25 17:35 | XMS_ITS | Clinical Summary ---
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 Take day of surgery if needed 9 9 Active montelukast (SINGULAIR) 10 MG tablet Take 1 tablet (10 mg total) by mouth nightly. Take the night before surgery Active loratadine (CLARITIN) 10 MG tablet Take 1 tablet (10 mg total) by mouth nightly. Take the night before surgery Active acetaminophen (TYLENOL) 325 MG tabletIndication s:Acquired spondylolisthesi s,Spondylolisthe sis of lumbosacral region Take 2 tablets (650 mg total) by mouth every 8 (eight) hours around the clock. 270 tablet 0 Active docusate sodium (COLACE) 100 MG capsuleIndicatio ns:Acquired spondylolisthesi s,Spondylolisthe sis of lumbosacral region Take 1 capsule (100 mg total) by mouth 2 (two) times a day. 60 capsule 0 Active albuterol (PROVENTIL HFA; VENTOLIN HFA) 108 (90 Base) MCG/ACT inhalerIndicatio ns:COVID-19 Inhale 2 puffs 4 times daily (every 6 hours) as needed for wheezing or shortness of breath. 1 Inhaler 1 1 Active benzonatate (TESSALON) 100 MG capsuleIndicatio ns:COVID-19 Take 1 capsule (100 mg total) by mouth 3 (three) times a day as needed for cough. 20 capsule 1 Active dexamethasone (DECADRON) 2 MG tabletIndication s:COVID-19 Take 1 tablet (2 mg total) by mouth See Admin Instructions. 3 times per day for 2 days, 2 times per day for 2 days, 1 time per day for 3 13 tablet 1 Active gabapentin (NEURONTIN) 100 MG capsule Take 1 capsule (100 mg total) by mouth 3 (three) times a day. 3 Active OMEprazole (PriLOSEC) 10 MG capsule Take 1 capsule (10 mg total) by mouth daily. Active tiZANidine (ZANAFLEX) 2 MG tabletIndication s:Chronic bilateral low back pain without sciatica,Sacroil iitis Take 1 tablet (2 mg total) by mouth 3 (three) times a day. 90 tablet 2 3 Active Active Problems Problem Noted Date Diagnosed Date Postoperative visit 06/03/2020 Sacroiliitis 05/05/2020 Acquired spondylolisthesis 06/05/2019 Migraines 06/05/2019 COPD (chronic obstructive pulmonary disease) Osteoporosis 06/05/2019 Spondylolisthesis of lumbosacral region 06/05/20 19 Resolved Problems Problem Noted Date Diagnosed Date Resolved Date COVID-19 11/17/2020 02/02/2024 Family History Medical History Relation Name Comments Arthritis Brother Hyperlipidemia Mother Relation Name Status Comments Brother Alive Father Unknown Mother Alive Sister Alive Son 1 Alive Son 2 Alive Social History Tobacco Use Types Packs/Day Years Used Date Smoking Tobacco: Never Smokeless Tobacco: Never Tobacco Cessation:Counseling Given: Not Answered Alcohol Use Standard Drinks/Week Comments Yes 0 (1 standard drink = 0.6 oz pur e alcohol) monthly or less Comments Unknown Sex and Gender Information Value Date Recorded Sex Assigned at Not on file Legal Sex Female 6:43 PM EST Gender Identity Not on file Sexual Orientation Not on file Last Filed Vital Signs Vital Sign Reading Time Taken Comments Blood Pressure 116/80 04/29/2023 2:56 PM EDT Pulse 70 04/29/2023 2:56 PM EDT Temperature 36.3 ??C (97.4 ??F) 04/29/2023 2:56 PM ED T Respiratory Rate 20 11/22/2020 9:00 AM EST Oxygen Saturation 99% 11/22/2020 9:00 AM EST Inhaled Oxygen Concentration - - Weight 58.5 kg (129 lb) 04/29/2023 2:56 PM EDT Height 154.9 cm (5' 1 ) 04/29/2023 2:56 PM EDT Body Mass Index 24.37 04/29/2023 2:56 PM EDT Plan of Treatment Health Maintenance Due Date Last Done Comments Hepatitis C Virus Screening 1961 HIV Screening 1974 DTaP/Tdap/Td Vaccines (1 - Tdap) 1980 Pneumococcal Vaccines 50+ (1 of 2 - PCV) 1980 Pap Smear (Ages 21-65) 1982 Mammogram 2001 Colonoscopy 2006 Zoster (Shingles) Vaccine (1 of 2) 2011 RSV Vaccine 60 years and older and Patients (1 - Risk 60-74 years 1-dose series) 2021 COVID-19 Vaccine (3 - 2023-2 5 season) 2024 03/10/2021, 02/17/2021 Influenza Vaccine 06/21/2025 Hepatitis B Vaccines Aged Out No long er eligible based on patient's age to complete this topic Medical Devices Implanted Type Area Vocational Trainer Device Identifier Shelf Expiration Date Model / Serial / Lot [id number] Spacer Spinal [id number] Cpstn Peek Ptc Lmbr Intrbd Fs Sterl - [id number] Implanted:Qty: 1 on 05/16/2020 by Uche Arevalo MD at [facility] Cage Right: Spine Lumbar [employer] 10/24/2027 [id number] / / [id number] Spacer Spinal [id number] Cpstn Peek Ptc Lmbr Intrbd Fs Sterl - [id number] Implanted:Qty: 1 on 05/16/2020 by Uche Arevalo MD at [facility] Cage Right: Spine Lumbar [employer] [id number] / / [id number] Fredrick [id number] 30mm Capped Fredrick 4.75mm Ccm - [id number] Implanted:Qty: 2 on 05/16/2020 by Uche Arevalo MD at [facility] Nail/Fredrick Right: Spine Lumbar [employer] [id number] / / [id number] Screw Bone Spine Solera Cd Hzn 40mm 6.5mm Ma Orly Xtd Tab - [id number] Implanted:Qty: 2 on 05/16/2020 by Uche Arevalo MD at [facility] Spine Right: Spine Lumbar [employer] [id number] / / [id number] Screw Bone Spine Solera Cd Hzn 40mm 5.5mm Ma Orly Xtd Tab - [id number] Implanted:Qty: 1 on 05/16/2020 by Uche Arevalo MD at [facility] Spine Right: Spine Lumbar [employer] [id number] / / [id number] Screw Bone Spine Solera Cd Hzn 45mm 5.5mm Ma Orly Xtd Tab - [id number] Implanted:Qty: 1 on 05/16/2020 by Uche Arevalo MD at [facility] Spine Right: Spine Lumbar [employer] [id number] / / [id number] Screw Set Ti Spine Perc Solera 4.75 Mm Fredrick - [id number] Implanted:Qty: 4 on 05/16/2020 by Uche Arevalo MD at [facility] Spine Right: Spine Lumbar [employer] [id number] / / [id number] Filler Bone Void 5ml Dbx Putty Nonst - [id number] Implanted:Qty: 1 on 05/16/2020 by Uche Arevalo MD at [facility] Void Filler Right: Spine Lumbar [employer] FOU 09/27/2021 [id number] / [id number] / Insurance [facility] Advance Directives * Full Code (Latest Code Status on File) Date Activated Date Inactivated Comments 11/17/2020 6:04 PM * Full Code Date Activated Date Inactivated Comments 05/16/2020 2:49 PM 11/17/2020 11:40 AM * Full Code Date Activated Date Inactivated Comments 05/16/2020 6:24 AM 05/16/2020 2:49 PM Care Teams Earthmoving Plant Operator Relationship Specialty Start Date End Date Sathish Diaz MD [address] [place] [address] Dr Fung [address] [place] [address] [place] [address] PCP - General Internal Medicine 05/06/20 Uche Arevalo MD [address] [place] [id number] Surgery, Neurosurgery 05/06/20
--- OUTSIDE RECORDS SUMMARY | 2025-03-25 17:35 | XMS_ITS | Encounter Summary ---
Author Organization [facility] Address [address] [place] [id number] Care Team Providers Care Reading Professor Name Role Phone Sathish Diaz MD Primary Care Provider [phone] Uche Arevalo MD Unavailable [phone] Encounter Details Date Type Department Care Team (Late st Contact Info) Description 03/08/2023 Scanned Document [facility] Neurosurgery [place] [address] [id number] Neurosurgery, Scan Social History Tobacco Use Types Packs/Day Years Used Date Smoking Tobacco: Never Smokeless Tobacco: Never Alcohol Use Standard Drinks/Week Comments Yes 0 (1 standard drink = 0.6 oz pur e alcohol) monthly or less Comments Unknown Sex and Gender Information Value Date Recorded Sex Assigned at Not on file Legal Sex Female 6:43 PM EST Gender Identity Not on file Sexual Orientation Not on file documented as of this encounter Plan of Treatment Not on file documented as of this encounter Visit Diagnoses Not on filedocumented in this encounter Care Teams Reading Professor Relationship Specialty Start Date End Date Sathish Diaz MD [address] [place] [address] [address] [place] [address] PCP - General Internal Medicine 05/06/20 Uche Arevalo MD [address] [place] [id number] Surgery, Neurosurgery 05/06/20 documented as of this encounter
--- OUTSIDE RECORDS SUMMARY | 2025-03-25 17:35 | XMS_ITS | Clinical Summary ---
Author Organization [employer] Address [address] [facility] [address] [place] [address] Care Team Providers Care Culinary Director Name Role Phone Unavailable Primary Care Provider Unavailabl e Immunizations Name Administration Dates Next Due MMR 02/13/2024 Social History Tobacco Use Types Packs/Day Years Used Date Smoking Tobacco: Never Assessed Comments Unknown Sex and Gender Information Value Date Recorded Sex Assigned at Female 02/07/2024 10:08 AM EDT Legal Sex Female 10:06 AM EDT Gender Identity Female 02/07/2024 10:08 AM EDT Sexual Orientation Straight 02/07/2024 10 :10 AM EDT Plan of Treatment Health Maintenance Due Date Last Done Comments CT Colonography 1961 Colonoscopy 1961 Colorectal Cancer Screening 1961 Depression Screening 1961 FIT DNA/Cologuard 1961 FIT 1961 FOBT 1961 HIV Screening 1961 SDOH Screening 1961 Sigmoidoscopy 1961 Pneumococcal Vaccine: Pediatrics (0 to 5 Years) and At-Risk Patients (6 to 49) Years) (1 of 2 - PCV) 1967 Alcohol/Substance Use Screening 1973 Tobacco Screening 1973 Hepatitis C Screening 1979 Pneumococcal Vaccine: 50+ Years (1 of 2 - PCV) 1980 Pap Smear 1982 Cervical Cancer Screening 1991 HPV/Cotest 1991 Mammogram 2001 Zoster Vaccines (2 of 2) 02/26/2021 01/01/2021 RSV Patients and Patients Aged 60 years or older (1 - Risk 60-74 years 1-dose series) 2021 COVID-19 Vaccine ( season) 2024 11/02/2021, 03/10/2021, 02/17/2021 Influenza Vaccine (#1) 2024 , 08/30/2021, 07/20/2019, Additional history exists DTaP/Tdap/Td Vaccines (2 - Td or Tdap) 02/05/2034 02/06/2024 HIB Vaccines Aged Out No longer eligi ble based on patient's age to complete this topic HPV Vaccines Aged Out No longer eligi ble based on patient's age to complete this topic Hepatitis A Vaccines Aged Out No long er eligible based on patient's age to complete this topic Hepatitis B Vaccines Aged Out No long er eligible based on patient's age to complete this topic IPV Vaccines Aged Out No longer eligi ble based on patient's age to complete this topic Meningococcal Vaccine Aged Out No papo arina eligible based on patient's age to complete this topic RSV under 20 months Aged Out No longe r eligible based on patient's age to complete this topic Rotavirus Vaccines Aged Out No longer eligible based on patient's age to complete this topic Insurance [facility] [place] [address] [place] [address] [facility] , [address] [place] [address]
--- OUTSIDE RECORDS SUMMARY | 2025-03-25 17:35 | XMS_ITS ---
Author Name [facility] Organization Unknown History of Medication Use Medication Directions Dispensed Refills Start Date End Date Stat us tiZANidine (ZANAFLEX) 2 MG tablet Take 1 tablet (2 mg total) by mouth 3 (three) times a day. 05/05/2023 08/04/2023 active gabapentin (NEURONTIN) 100 MG capsule Take 1 capsule (100 mg total) by mouth 3 (three) times a day. 02/03/2023 active HYDROcodone-homatrop ine (HYCODAN) syrup Take 5 mL by mouth 4 times daily (every 6 hours) as needed for cough. Max Daily Amount: 20 mL 11/22/2020 04/29/2023 active Oxygen 2 liters via nasal cannula with concentrator & portable tank for use with activity & sleep TRAE: 89 years Dx: COVID19, Asthma, COPD 11/22/2020 04/29/2023 active benzonatate (TESSALON) 100 MG capsule Take 1 capsule (100 mg total) by mouth 3 (three) times a day as needed for cough. 11/22/2020 active dexamethasone (DECADRON) 2 MG tablet Take 1 tablet (2 mg total) by mouth See Admin Instructions. 3 times per day for 2 days, 2 times per day for 2 days, 1 time per day for 3 11/22/2020 active docusate sodium (COLACE) 100 MG capsule Take 1 capsule (100 mg total) by mouth 2 (two) times a day. 05/17/2020 active SUMAtriptan (IMITREX) 25 MG tablet Take 12.5 mg by mouth once as needed. Take day of surgery if needed 04/16/2019 active Calcium Carbonate-Vit D-Min (CALTRATE 600+D PLUS PO) Take 1 tablet by mouth every morning. Stop on 05/09/20 04/29/2023 active OMEprazole (PriLOSEC) 10 MG capsule Take 1 capsule (10 mg total) by mouth daily. active Problems Problem Status Onset Date Problem Type Date of Resolution Source COVID-19 active 2020-11-17 ProblemAct [facility] Migraines active 2019-06-05 ProblemAct [facility] Weakness of right foot active EncounterDiagnosi sAct [facility] Chronic bilateral low back pain without sciatica active EncounterDiagnosisAct [facility] Lumbar radiculopathy active EncounterDiagnosisA ct [facility] Spondylolisthesis of lumbosacral region active 2019-06-05 ProblemAct [facility] Acquired spondylolisthesis active 2019-06-05 ProblemAct [facility] COPD (chronic obstructive pulmonary disease) active 2019-06-05 ProblemAct [facility] Osteoporosis active 2019-06-05 [facility] Sacroiliitis active 2020-05-05 ProblemAct [facility] Status post lumbar spinal fusion active EncounterDiagnosisAct [facility] Postoperative visit active 2020-06-03 ProblemAct [facility] Encounters Encounter Type Encounter Reason Primary Diagnosis Location Date Ambulatory Arthrodesis status [facility] 04/29/2023 Care Team Organization Name Specialty Phone Email Start Date End [facility] 04/29/2023 [place] [facility]
--- OUTSIDE RECORDS SUMMARY | 2025-03-25 17:35 | XMS_ITS | Encounter Summary ---
Author Organization [facility] Address [address] [place], [place] [id number] Care Team Providers Care Transit Planning Director Name Role Phone ProviderLaci MD Primary Care Provider [phone] Sathish Diaz MD Primary Care Provider [phone] Uche Areavlo MD Unavailable [phone] Encounter Details Date Type Department Care Team (Late st Contact Info) Description 04/23/2020 Scanned Document [facility] Neurosurgery [address] [phone] Uche Arevalo MD [address] [address] Social History Tobacco Use Types Packs/Day Years Used Date Smoking Tobacco: Unknown Comments Unknown Sex and Gender Information Value Date Recorded Sex Assigned at Not on file Legal Sex Female 6:43 PM EST Gender Identity Not on file Sexual Orientation Not on file documented as of this encounter Plan of Treatment Not on file documented as of this encounter Visit Diagnoses Not on filedocumented in this encounter Additional Health Concerns Infection Onset Date Last Indicated Resolved Time COVID-19 Comment:11/17/2020 11/18/2020 11/18/2020 12/08/2020 11:43 PM EST documented as of this encounter Care Teams Transit Planning Director Relationship Specialty Start Date End Date Provider, MD [address] [place] [address] PCP - General Internal Medicine 05/04/19 05/05/20 Sathish Diaz MD [address] [place] [address] [place] [address] [place] [address] PCP - General Internal Medicine 05/06/20 Uche Arevalo MD [address] [place] [id number] Surgery, Neurosurgery 05/06/20 documented as of this encounter
== END 2025-03-25 17:54 | disposition home or self-care (01) ==
LOC: HO.HMCH 16:17
PROVIDERS: PCP Internal Medicine; Visit Provider Internal Medicine
DX: E78.00 Pure hypercholesterolemia, unspecified (principal); K29.00 Acute gastritis without bleeding; J45.41 Moderate persistent asthma with (acute) exacerbation; J30.9 Allergic rhinitis, unspecified; G43.909 Migraine, unspecified, not intractable, without status migrainosus; R42 Dizziness and giddiness; M51.362 Other intervertebral disc degeneration, lumbar region with discogenic back pain and lower extremity pain; M54.16 Radiculopathy, lumbar region; M21.371 Foot drop, right foot; M81.0 Age-related osteoporosis without current pathological fracture; N95.2 Postmenopausal atrophic vaginitis

== ENCOUNTER → 2025-03-25 16:16 | Outpatient (BNVA) | payer OTHER, SELFPAY | PROVIDERS: PCP Internal Medicine; Visit Provider Internal Medicine | DX: E78.00 Pure hypercholesterolemia, unspecified (principal); K29.00 Acute gastritis without bleeding; J45.41 Moderate persistent asthma with (acute) exacerbation; J30.9 Allergic rhinitis, unspecified; G43.909 Migraine, unspecified, not intractable, without status migrainosus; R42 Dizziness and giddiness; M51.362 Other intervertebral disc degeneration, lumbar region with discogenic back pain and lower extremity pain; M54.16 Radiculopathy, lumbar region; M21.371 Foot drop, right foot; M81.0 Age-related osteoporosis without current pathological fracture; N95.2 Postmenopausal atrophic vaginitis; Z79.899 Other long term (current) drug therapy | CPT/HCPCS: 96127 ==

== ENCOUNTER 2025-09-24 16:25 | Outpatient (AMB) | payer OTHER, SELFPAY ==
--- NOTE | 2025-09-24 16:28 | A.OFFPC_ITS ---
Vital Signs 09/24/25 16:29 09/24/25 17:02 Height 4 ft 11 in BMI Reason not done Patient refused/unable BP 130/90 H 138/90 H Blood Pressure Location Lt brachial Lt brachial Position Sitting Sitting Pulse 90 Pulse Source Pulse Oximeter Pulse Oximetry (%) 96 Oxygen Delivery Method Room Air Intake Visit Reasons: annual exam Store Stock Help Required: No Accompanied by: Self / Same As Patient Allergies azithromycin (From ZITHROMAX) Allergy (Severe, Verified 09/24/25 16:46) RASH/SWELLING amoxicillin (Augmentin) Allergy (Unknown, Verified 09/24/25 16:46) rash, hives clavulanic acid (Augmentin) Allergy (Unknown, Verified 09/24/25 16:46) rash, hives Medication List - Last Reconciled 09/24/25 by Sathish Diaz MD clindamycin HCl (Cleocin HCl) 150 mg PO TID 7 days estradiol 0.01%(0.1mg/gram) (Estrace) 1 appful vaginal 3XW 30 days fluticasone propion-salmeterol 250-50 mcg/dose (Wixela Inhub) 1 inh inhalation BID gabapentin 100 mg PO TID 30 days montelukast 10 mg PO BEDTIME 90 days omeprazole 20 mg PO DAILY 90 days scopolamine base (Transderm-Scop) 1 patch transdermal Q3D PRN sumatriptan succinate 25 mg PO ONCE PRN 90 days Tobacco use date assessed: 09/24/25 Fall risk assessment: 1 Fall in past year Last assessed Fall Risk: 09/24/25 Dental Screening Dental Screen Date: 09/24/25 Did you have a dental visit in the last 12 months?: Yes Did you have a dental problem in the last 6 months where you did not have access to dental care?: No Was dental information given to patient?: Patient has dentist HPI annual exam HPI Details Patient comes in today for her annual physical examination States that she feels okay Denies any headaches or dizziness Denies any chest pains, no SOB No nausea/vomiting, no abdominal pain No change in bowel habits noted Denies any acute urinary symptoms She had a Cologuard test done back on 02/05/2025 that came back negative, covering her for the next three years Her bone density scan and mammogram were previously ordered but were not completed as the patient reports that she was never contacted by the scheduling department at [facility] States that 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 Patient has a history of mild asthma and allergies, which cause an occasional cough and a tickling sensation in her throat. She has previously used a scopolamine patch for motion sickness during a cruise, which she found to be effective. She reports some weight gain recently, which she attributes to a decrease in walking due to a fear of falling. Regarding medications, she requests refills for Imitrex and Montelukast. States she has enough Omeprazole and Gabapentin and does not need refills at this time, as she uses them infrequently. [facility] Medical History Lumbar degenerative disc disease Osteoporosis Chronic right-sided lumbar radiculopathy Pure hypercholesterolemia Paresthesia Pneumonia due to COVID-19 virus Allergic rhinitis Migraine Asthma Surgical History Status post colonoscopy (~07/16/09) Status post lumbar spinal fusion (~05/16/20) Family History Mother Hypertension Other Substance abuse Social History Housing: House Alcohol intake: current Alcohol intake frequency: holidays/special occasions only Patient Tobacco Use Status: Former Tobacco user e-Cigarette/Vaping Use: Never Used Second Hand Smoke Exposure: Yes service: No Current occupational status: employed Cognitive needs: No Hearing needs: No Vision needs: Yes (Reading glasses) Questionnaire PHQ-9 Over the last 2 weeks, how often have you been bothered by any of the following problems? 1. Little interest or pleasure in doing things: not at all 2. Feeling down, depressed, or hopeless: not at all 3. Trouble falling or staying asleep, or sleeping too much: not at all 4. Feeling tired or having little energy: not at all 5. Poor appetite or overeating: not at all 6. Feeling bad about yourself - or that you are a failure or have let yourself or your family down: not at all 7. Trouble concentrating on things, such as reading the newspaper or watching television: not at all 8. Moving or speaking so slowly that other people could have noticed. Or the opposite - being so fidgety or restless that you have been moving around a lot more than usual: not at all 9. Thoughts that you would be better off or of hurting yourself in some way: not at all Total score: 0 Depression Screening Interpretation: Negative Depression Screening Done: Yes 92065 - PHQ-9 Billing: Yes Source: Developed by Drs. Rick Auhmada, Sofay Kessler, Zi Roland and colleagues, with an educational sergei from [employer]. Thrive Questionnaire Date Thrive assessed: 09/24/25 I am a: Patient What is your living situation today?: I have a steady place to live Within the past 12 months, did the food you bought not last and you didn't have the money to get more?: Never true Within the past 12 months, did you worry whether your food would run out before you got money to buy more?: Never true Do you have trouble paying for medicines?: I choose not to answer this question Do you have trouble getting transportation to medical appointments?: No Do you have trouble paying your heating and electricity bill?: No Do you have trouble taking care of your child, family member or friend?: No Do you have trouble with day-to-day activities such as bathing, preparing meals, shopping, managing finances, etc.?: No Are you currently unemployed and looking for a job?: No Are you interested in more education?: No Please select the resources that you would like help with: None Currently or been in a relationship where the following occur: No concerns reported THRIVE Score: 0 AUDIT C Alcohol Use Questionnaire (AUDIT-C) 1. How often do you have a drink containing alcohol?: Monthly or less 2. How many drinks containing alcohol do you have on a typical day when you are drinking?: 1 or 2 3. How often do you have six or more drinks on one occasion?: Never Total Score: 1 Score Reviewed/Action Taken: Yes SVETLANA-7 AMB Questionnaire SVETLANA-7 Date SVETLANA - 7 assessed: 09/24/25 Feeling nervous, anxious, or on edge: 0 = Not at all Not being able to stop or control worryin = Not at all Worrying too much about different things: 0 = Not at all Trouble relaxin = Several days Being so restless that it is hard to sit still: 0 = Not at all Becoming easily annoyed or irritable: 0 = Not at all Feeling afraid as if something awful might happen: 0 = Not at all Total SVETLANA-7 score (0-4 normal; 5-9 mild; 10-14 moderate; 15-21 severe): 1 Source: Developed by Drs. Rick Ahumada, Sofya Kessler, Zi Roland and colleagues, with an educational sergei from [employer]. Review of Systems Const Denies chills, Denies fatigue, Denies fever(s), Denies headache(s) and Denies malaise Eyes Denies blurry vision, Denies change in vision, Denies irritation and Denies itchy eyes ENT Denies dysphagia, Denies dizziness, Denies otalgia, Denies headache(s), Denies nasal congestion, Denies neck pain, Denies odynophagia, Denies sinus pain and Denies sore throat Card Denies chest pain, Denies rapid heart rate, Denies irregular heart rhythm, Denies palpitations and Denies dyspnea Resp Denies chest congestion, Reports cough (occasional, non-productive - mostly due to a tickling sensation in throat), Denies dyspnea and Denies wheezing GI Denies abdominal pain, Denies bloating, Denies constipation, Denies dysphagia, Denies heartburn, Denies diarrhea, Denies nausea, Denies odynophagia and Denies vomiting Denies hematuria, Denies difficulty voiding, Denies dysuria, Denies urinary incontinence and Denies urinary urgency Musc Reports abnormal gait (unsteady gait), Denies back pain, Denies arthralgias, Denies joint swelling, Denies muscle weakness and Denies neck pain Skin/Breast Denies breast pain, Denies breast mass, Denies change in pigmentation, Denies lesions, Denies rash and Denies unusual bruising Neuro Reports abnormal gait (unsteady gait), Denies dizziness, Denies headache(s) and Denies paresthesias Psych Denies anxiety and Denies depression Endo Denies fatigue and Denies palpitations Matt/Lymph Denies easy bruising Aller/Immun Denies itchy eyes and Denies wheezing Physical exam (Primary Care) Vital Signs: Last Vital Signs Pulse 90 09/24/25 16:29 BP 138/90 H 09/24/25 17:02 Pulse Ox 96 09/24/25 16:29 Oxygen Delivery Method Room Air 09/24/25 16:29 Tobacco/Smoking Status: Tobacco use Status Tobacco use date assessed 09/24/25 09/24/25 16:33 Patient Tobacco Use Status Former Tobacco user 09/24/25 16:33 e-Cigarette/Vaping Use Never Used 09/24/25 16:33 PHQ-9: PHQ-9 Score PHQ-9: Total score 0 09/24/25 16:52 Depression Screening Interpretation: Negative Thrive Assessment: Date of Thrive Assessment Date Thrive assessed 09/24/25 09/24/25 16:33 Currently or been in a relationship where the following occur: No concerns reported Const General: no acute distress, alert and awake Orientation/consciousness: patient oriented x3 HENMT Head: Yes normocephalic and Yes atraumatic Ears: external ears normal, TM's normal bilaterally and EAC's normal General nose exam: No nasal discharge present Face and sinus: Yes normal facial exam and Yes sinuses nontender Teeth and gingiva: dentition normal Throat: Yes posterior oropharynx normal and Yes tonsils normal (no TP congestion) Eyes Eyelids: Yes eyelids normal Conjunctivae: conjunctivae normal Pupils: Equal, round and reactive pupils present EOM: EOMs intact bilaterally Neck Neck: Yes no lymphadenopathy and Yes supple Thyroid: Thyroid normal Resp Auscultation: clear to auscultation bilaterally, no rales and no wheezes Cardio Rate: regular rate Rhythm: regular rhythm Heart sounds: no murmurs GI Palpation (GI): Soft to palpation, nontender and No hepatosplenomegaly present Auscultation: normal bowel sounds General: Yes no CVA tenderness Back/Spine/Pelvis Back: no CVA tenderness Thoracic/Lumbar Spine: thoracic and lumbar spine normal to inspection Skin Lesions: no lesions Rashes: no rashes Neuro General: patient oriented x3, moves all extremities, no focal motor deficits and CN's II-XI intact bilaterally Cranial nerves: Yes Equal, round and reactive pupils present Cognition (Neuro): normal cognition Gait exam (Neuro): Normal gait present Extrem General: Yes no clubbing, cyanosis or edema Coding Level of Care Code Est Pt Prev Care 40-64y(63629) Diagnoses Annual physical exam Z00.00 Pure hypercholesterolemia E78.00 Acute gastritis without hemorrhage, unspecified gastritis type K29.00 Chronicity: acute Gastritis bleeding: without bleeding Gastritis type: unspecified gastritis Moderate persistent asthma with acute exacerbation J45.41 Asthma complication type: with acute exacerbation Asthma persistence: persistent Asthma severity: moderate Allergic rhinitis, unspecified seasonality, unspecified trigger J30.9 Allergic rhinitis seasonality: unspecified Allergic rhinitis trigger: unspecified Migraine without status migrainosus, not intractable, unspecified migraine type G43.909 Intractability: not intractable Migraine type: unspecified Status migrainosus presence: without status migrainosus Lumbar degenerative disc disease M51.369 Chronic right-sided lumbar radiculopathy M54.16 Right foot drop M21.371 Age-related osteoporosis without current pathological fracture M81.0 Osteoporosis type: age-related Presence of current pathological fracture: without current pathological fracture Atrophic vaginitis N95.2 Additional Codes PHQ-9 - 94841 - PHQ-9 Billing: Yes ([id number]) Assessment & Plan Assessment & Plan (1) Annual physical exam: Code(s): Z00.00 - Encounter for general adult medical examination without abnormal findings Category: Medical Plan: Check labs ABBIE to complete her annual exam today She had a negative Cologuard test done back on 02/05/2025, covering her for the next three years - she will need repeat Cologuard or screening colonoscopy in 2027 Her bone density scan and mammogram were previously ordered but were not completed as the patient reports that she was never contacted by the scheduling department at [facility] - will reorder these and she is advised to reach out to the scheduling department at [facility], where she works, to get these scheduled ABBIE States that her previous geriatric personal care aide retired earlier this year, and she has not yet established care with a new provider for ongoing gynecological care, including Pap smears (2) Pure hypercholesterolemia: Code(s): E78.00 - Pure hypercholesterolemia, unspecified Category: Medical Plan: Reinforced low-cholesterol diet Will have her recheck her fasting lipids ABBIE for follow up (3) Gastritis: Code(s): K29.70 - Gastritis, unspecified, without bleeding Category: Medical Qualifiers: Chronicity: acute Gastritis bleeding: without bleeding Gastritis type: unspecified gastritis Qualified Code(s): K29.00 - Acute gastritis without bleeding Plan: Reinforced dietary restrictions Continue Omeprazole 20 mg QD PRN (4) Asthma: Code(s): J45.909 - Unspecified asthma, uncomplicated Category: Medical Qualifiers: Asthma complication type: with acute exacerbation Asthma persistence: persistent Asthma severity: moderate Qualified Code(s): J45.41 - Moderate persistent asthma with (acute) exacerbation Plan: Her asthma appears better controlled currently Continue Wixela Inhub 250-50 mcg 1 inhalation BID, Montelukast 10 mg QD and Albuterol HFA 1 to 2 inhalations every 6 hours only as needed (5) Allergic rhinitis: Code(s): J30.9 - Allergic rhinitis, unspecified Category: Medical Qualifiers: Allergic rhinitis seasonality: unspecified Allergic rhinitis trigger: unspecified Qualified Code(s): J30.9 - Allergic rhinitis, unspecified Plan: Her Montelukast is also helping with her allergies She also takes OTC Cetirizine 10 mg or Loratadine 10 mg QD PRN (6) Migraine: Code(s): G43.909 - Migraine, unspecified, not intractable, without status migrainosus Category: Medical Qualifiers: Intractability: not intractable Migraine type: unspecified Status m igrainosus presence: without status migrainosus Qualified Code(s): G43.909 - Migraine, unspecified, not intractable, without status migrainosus Plan: Stable/controlled Reinforced avoidance of all potential migraine triggers Continue Sumatriptan 25 mg PRN (7) Lumbar degenerative disc disease: Code(s): M51.369 - Other intervertebral disc degeneration, lumbar region without mention of lumbar back pain or lower extremity pain Category: Medical Plan: Reinforced activity and weight lifting restrictions MRI of the lumbar spine done back in 2018 revealed (+) bilateral L5 spondylolysis with grade 1 anterolisthesis of L5 on S1. There is [id number] bilateral foraminal stenosis abutting the exiting L5 nerve root. There is also a left foraminal to extraforaminal disc protrusion potentially abutting the extraforaminal exiting left L3 nerve root at L3-L4 and there is mild levoconvex lumbar scoliosis noted Due to her increasing low back pain and right lumbar radicular symptoms, we sent patient for repeat MRI of the lumbar spine for further evaluation Patient states that she has not yet gotten this done and will try to call [facility] to get this scheduled ABBIE (8) Chronic right-sided lumbar radiculopathy: Code(s): M54.16 - Radiculopathy, lumbar region Category: Medical Plan: EMG and NCV of the right lower leg done back in September 2022 revealed normal motor and sensory nerve conduction study of the right lower extremity; the EMG of the right L4-S1 innervated muscles are consistent with chronic L4-L5 radiculopathy Continue Gabapentin 100 mg TID - states that symptoms have calmed down a lot with Gabapentin She has been referred to and is also now seeing [facility] for follow up regularly (9) Right foot drop: Code(s): M21.371 - Foot drop, right foot Category: Medical Plan: EMG and NCV done in September 2022 revealed normal motor and sensory nerve conduction study of the right lower extremity but the EMG of the right L4-S1 innervated muscles are consistent with chronic L4-L5 radiculopathy She is now going to [facility] for neurology follow up (10) Osteoporosis: Code(s): M81.0 - Age-related osteoporosis without current pathological fracture Category: Medical Qualifiers: Osteoporosis type: age-related Presence of current pathological fracture: without current pathological fracture Qualified Code(s): M81.0 - Age- related osteoporosis without current pathological fracture Plan: Her bone density scan done back in 2018 revealed (+) osteoporosis based on the lowest T-score of-2.6 in the lumbar spine Reinforced fall precautions Patient is again reminded to continue taking her daily vitamin-D supplements and oral calcium supplements We sent her for repeat bone density for follow-up at her last visit but she also has not yet gotten this scheduled (11) Atrophic vaginitis: Code(s): N95.2 - Postmenopausal atrophic vaginitis Category: Medical Plan: Continue Estace 0.01% cream apply TIW Plan Follow up in 6 months Orders: Orders XR DEXA axial skeleton 09/24/25 Z78.0 - Asymptomatic menopausal state, M81.0 - Age-related osteoporosis without current pathological fracture Complete Blood Count Auto Diff 09/24/25 D64.9 - Anemia, unspecified, Z00.00 - Encounter for general adult medical examination without abnormal findings TSH reflex Free T4 09/24/25 E78.00 - Pure hypercholesterolemia, unspecified, Z00.00 - Encounter for general adult medical examination without abnormal findings UA CC w/rflx Micro + Cult 09/24/25 R30.0 - Dysuria, Z00.00 - Encounter for general adult medical examination without abnormal findings Vitamin D 25-OH Total 09/24/25 E55.9 - Vitamin D deficiency, unspecified, Z00.00 - Encounter for general adult medical examination without abnormal findings MM tomosynthesis screening BI 09/24/25 Z12.31 - Encounter for screening mammogram for malignant neoplasm of breast Comprehensive [place]. Panel Fast 09/24/25 E78.00 - Pure hypercholesterolemia, unspecified, Z00.00 - Encounter for general adult medical examination without abnormal findings Lipid Panel 09/24/25 E78.00 - Pure hypercholesterolemia, unspecified, Z00.00 - Encounter for general adult medical examination without abnormal findings Vitamin B12 and Folate 09/24/25 E53.8 - Deficiency of other specified B group vitamins, Z00.00 - Encounter for general adult medical examination without abnormal findings Collagen Crosslinks NTX 09/24/25 M81.0 - Age-related osteoporosis without current pathological fracture Medications: Refilled montelukast 10 mg PO BEDTIME 90 tabs 3RF 90 days sumatriptan succinate take as instructed. may take 2nd dose after 2 hours if needed. Max of 2 tablets in 24 hours 25 mg PO ONCE PRN 40 tabs 3RF migraine 90 days
[2025-09-24 16:29] VITALS: BP 130/90; PULSE 90; O2SAT 96
[2025-09-24 17:02] VITALS: BP 138/90
--- OUTSIDE RECORDS SUMMARY | 2025-09-24 18:38 | XMS_ITS | Clinical Summary ---
Author Organization [facility] Address [address] [place] [id number] Care Team Providers Care Application Support Consultant Name Role Phone Sathish Diaz MD Primary Care Provider [phone] Uche Arevalo MD Unavailable [phone] Allergies Active Allergy Reactions Criticality Noted [...] 70 04/29/2023 2:56 PM EDT Temperature 36.3 C (97.4 F) 04/29/2023 2:56 PM EDT Respiratory Rate 20 11/22/2020 9:00 AM EST [...] (Ages 21-65) 1982 Mammogram 2001 Colonoscopy 2006 RSV Vaccine 50 years and older and Patients (1 - Risk 50-74 years 1-dose series) 2011 Zoster (Shingles) Vaccine (1 of 2) 2011 Influenza Vaccine 06/21/2025 COVID-19 Vaccine (3 - 2024-2 6 season) 2025 03/10/2021, 02/17/2021 Hepatitis B Vaccines Aged Out No long er eligible based on patient's age to complete this topic Medical Devices Implanted Type Area Brick Carrier Device Identifier Shelf Expiration Date Model / Serial / Lot [id number] Spacer Spinal [id number] Cpstn Peek Ptc Lmbr Intrbd Fs Sterl - [id number] Implanted:Qty: 1 on 05/16/2020 by Uche Arevalo MD at [facility] Cage Right: Spine Lumbar [employer] MINIMALLY INVASIVE T 10/24/2027 [id number] / / [id number] Spacer Spinal [id number] Cpstn Peek Ptc Lmbr Intrbd Fs Sterl - [id number] Implanted:Qty: 1 on 05/16/2020 by Uche Arevalo MD at [facility] Cage Right: Spine Lumbar [employer] MINIMALLY INVASIVE T [id number] / / [id number] Fredrick [id number] 30mm Capped Fredrick 4.75mm Ccm - [id number] Implanted:Qty: 2 on 05/16/2020 by Uche Arevalo MD at [facility] Nail/Fredrick Right: Spine Lumbar [employer] MINIMALLY INVASIVE T [id number] / / [id number] Screw Bone Spine Solera Cd Hzn 40mm 6.5mm Ma Orly Xtd Tab - [id number] Implanted:Qty: 2 on 05/16/2020 by Uche Arevalo MD at [facility] Spine Right: Spine Lumbar [employer] MINIMALLY INVASIVE T [id number] / / [id number] Screw Bone Spine Solera Cd Hzn 40mm 5.5mm Ma Orly Xtd Tab - [id number] Implanted:Qty: 1 on 05/16/2020 by Uche Arevalo MD at [facility] Spine Right: Spine Lumbar [employer] MINIMALLY INVASIVE T [id number] / / [id number] Screw Bone Spine Solera Cd Hzn 45mm 5.5mm Ma Orly Xtd Tab - [id number] Implanted:Qty: 1 on 05/16/2020 by Uche Arevalo MD at [facility] Spine Right: Spine Lumbar [employer] MINIMALLY INVASIVE T [id number] / / [id number] Screw Set Ti Spine Perc Solera 4.75 Mm Fredrick - [id number] Implanted:Qty: 4 on 05/16/2020 by Uche Arevalo MD at [facility] Spine Right: Spine Lumbar [employer] MINIMALLY INVASIVE T [id number] / / [id number] Filler Bone Void 5ml Dbx Putty Nonst - [id number] Implanted:Qty: 1 on 05/16/2020 by Uche Arevalo MD at [facility] Void Filler Right: Spine Lumbar [employer]OSKELETAL TRANSPLANT FOU 09/27/2021 [id number] / [id number] / Insurance [facility] [place] [id number] [facility] [place] [phone] Advance Directives * Full Code (Latest Code Status on File) Date Activated Date Inactivated Comments 11/17/2020 6:04 PM * Full Code Date Activated Date Inactivated Comments 05/16/2020 2:49 PM 11/17/2020 11:40 AM * Full Code Date Activated Date Inactivated Comments 05/16/2020 6:24 AM 05/16/2020 2:49 PM Care Teams Application Support Consultant Relationship Specialty Start Date End Date Sathish Diaz MD [address] [place] [address] [address] PCP - General Internal Medicine 05/06/20 Uche Arevalo MD [address] [place] [id number] Surgery, Neurosurgery 05/06/20
--- OUTSIDE RECORDS SUMMARY | 2025-09-24 18:38 | XMS_ITS | Encounter Summary ---
Author Organization [facility] Address [address] [place] [address] Care Team Providers Care Wiener Packer Name Role Phone Sathish Diaz MD Primary Care Provider [phone] Uche Arevalo MD Unavailable [phone] Encounter Details Date Type Department Care Team (Late st Contact Info) Description 03/08/2023 Scanned Document [facility] Neurosurgery [place] [address] [id number] Neurosurgery, Scan Social History Tobacco [...] on filedocumented in this encounter Care Teams Wiener Packer Relationship Specialty Start Date End Date Sathish Diaz MD [address] [place] [address] [address] [place] [address] PCP - General Internal Medicine 05/06/20 Uche Arevalo MD [address] [place] [id number] Surgery, Neurosurgery 05/06/20 documented as of this encounter
--- OUTSIDE RECORDS SUMMARY | 2025-09-24 18:38 | XMS_ITS | Clinical Summary ---
Author Organization [employer] Address [address] [place] [address] Care Team Providers Care Cut Off Sawyer Log Name Role Phone Unavailable Primary Care Provider Unavailabl e Immunizations Immunization Administration Dates Next Due MMR 02/13/2024 Social [...] Screening 1961 SDOH Screening 1961 Sigmoidoscopy 1961 Disability Screening 1961 Alcohol/Substance Use Screening 1973 Tobacco Screening 1973 Hepatitis C Screening 1979 Pneumococcal Vaccine: 50+ Years (1 of 2 - PCV) 1980 Pap Smear 1982 Cervical Cancer Screening 1991 HPV/Cotest 1991 Mammogram 2001 Zoster Vaccines (2 of 2) 02/26/2021 01/01/2021 RSV Patients and Patients Aged 60 years or older (1 - Risk 60-74 years 1-dose series) 2021 COVID-19 Vaccine ( season) 2025 11/02/2021, 03/10/2021, 02/17/2021 Influenza Vaccine (#1) 2025 , 08/30/2021, 07/20/2019, Additional history exists DTaP/Tdap/Td [...] patient's age to complete this topic Meningococcal B Vaccine Aged Out No l onger eligible based on patient's age to complete this topic Meningococcal Vaccine Aged Out No papo arina eligible based on patient's age to complete this topic RSV under 20 months Aged Out No longe r eligible based on patient's age to complete this topic Rotavirus Vaccines Aged Out No longer eligible based on patient's age to complete [place] [address] [facility] , [address] [place] [address]
--- OUTSIDE RECORDS SUMMARY | 2025-09-24 18:38 | XMS_ITS | Clinical Summary ---
Author Organization [facility] Address [address] [address] Phone Care Team Providers Care Divemaster Name Role Phone Pcp, Unknown Primary Care Provider Unavailabl e Allergies Active Allergy Reactions Criticality Noted Date Comments Amoxicillin-Pot Clavulanate Hives Medium 06/05/20 19 Welts Azithromycin Anaphylaxis,Hives High 06/05/2019 Levofloxacin Unknown Medium 04/29/2023 Medications gabapentin (NEURONTIN) 100 MG capsule TAKE 1 CAPSULE BY MOUTH THREE TIMES A DAY X30 DAYS Active loratadine (CLARITIN) 10 mg tablet Take 10 mg by mouth. Active montelukast (SINGULAIR) 10 mg tablet Take 10 mg by mouth. Active omeprazole (PRILOSEC) 20 MG capsule Take by mouth daily. Active SUMAtriptan (IMITREX) 25 MG tablet PLEASE SEE ATTACHED FOR DETAILED DIRECTIONS 4 Active tiZANidine (ZANAFLEX) 2 MG tablet Take 2 mg by mouth 3 (three) times a day. 3 Active Immunizations Immunization Administration Dates Next Due Influenza Quadrivalent MDCK Preservative Free IM 02/02/2024,07/20/2019 Influenza Quadrivalent Preservative Free IM 08/21,08/17/2018 Influenza Quadrivalent w/ Preservative IM 2016,08/23/2016 MMR 02/13/2024 Tdap 02/06/2024 Zoster recombinant 01/01/2021 Social History Tobacco Use Types Packs/Day Years Used Date Smoking Tobacco: Never Smokeless Tobacco: Never Education Answer Date Recorded Are you interested in more education? Not on shree e 07/04/2024 Are you concerned about learning? Not on file 07/04/2024 No 07/04/2024 No 07/04/2024 Digital Access Answer Date Recorded No 07/04/2024 No 07/04/2024 Reliable internet access at home? Not on file 07/04/2024 Device with a working camera? Not on file Comments Unknown Sex and Gender Information Value Date Recorded Sex Assigned at Not on file Legal Sex Female 9:47 PM EDT Gender Identity Not on file Sexual Orientation Not on file Last Filed Vital Signs Vital Sign Reading Time Taken Comments Blood Pressure 137/91 07/04/2024 12:04 PM EDT Pulse 80 07/04/2024 12:04 PM EDT Temperature 36.8 C (98.2 F) 07/04/2024 12:04 PM EDT Respiratory Rate 18 07/04/2024 12:04 PM EDT Oxygen Saturation 99% 07/04/2024 12:04 PM EDT Inhaled Oxygen Concentration - - Weight - - Height - - Body Mass Index - - Plan of Treatment Health Maintenance Due Date Last Done Comments LIPID PANEL 1961 DEPRESSION SCREENING 1973 HEPATITIS C SCREENING 1979 HIV ONE-TIME SCREENING (18-65 YEARS) 1979 PAP SMEAR 1982 MAMMOGRAM 2001 COLOGUARD 2006 COLONOSCOPY 2006 COLORECTAL CANCER SCREENING 2006 FIT TEST 2006 FOBT 2006 SIGMOIDOSCOPY 2006 VIRTUAL COLONOSCOPY 2006 PNEUMOCOCCAL VACCINES (50+ years) (1 of 1 - PCV) 2011 ZOSTER VACCINES (2 of 2) 02/26/2021 01/01/2021 INFLUENZA VACCINE (#1) 2025 , 08/30/2021, 07/20/2019, Additional history exists COVID-19 VACCINE ( - 2024- season) 2025 11/02/2021, 03/10/2021, 02/17/2021 Adult Td,Tdap Booster 02/05/2034 02/06/2024 RSV VACCINE (1 - 1-dose 75+ series) 2036 SMOKING STATUS SCREENING (Once After 26 Yrs) Completed 07/04/2024 HEPATITIS A VACCINES Aged Out No long er eligible based on patient's age to complete this topic HIB VACCINES Aged Out No longer eligi ble based on patient's age to complete this topic MENINGOCOCCAL VACCINES (ACWY) Aged Out No longer eligible based on patient's age to complete this topic MENINGOCOCCAL VACCINES (B) Aged Out N o longer eligible based on patient's age to complete this topic Medical Devices Not on file Insurance [address] [place], [place] [address] [place], [place] [address] [place], [place] [address] Care Teams Divemaster Relationship Specialty Start Date End Date Pcp, Unknown PCP - General 07/04/24 Additional Source Comments The information contained in this document represents components of the legal health record. It is not the complete legal health record.[facility]
--- OUTSIDE RECORDS SUMMARY | 2025-09-24 18:38 | XMS_ITS | Encounter Summary ---
Author Organization [address] [address] Care Team Providers Care Production Supv Name Role Phone ProviderLaci MD Primary Care Provider [phone] Sathish Diaz MD Primary Care Provider [phone]- [phone] Uche Arevalo MD Unavailable [phone] Encounter Details Date Type Department Care Team (Late st Contact Info) Description 04/23/2020 Scanned Document [facility] Neurosurgery [address] [id number] Uche Arevalo MD [address] [address] Social History Tobacco Use Types Packs/Day Years [...] documented as of this encounter Care Teams Production Supv Relationship Specialty Start Date End Date Provider, MD Laci [address] [place] [address] PCP - General Internal Medicine 05/04/19 05/05/20 Sathish Diaz MD [address] [place] [address] [address] [place] [address] PCP - General Internal Medicine 05/06/20 Uche Arevalo MD [address] [place] [id number] Surgery, Neurosurgery 05/06/20 documented as of this encounter
== END 2025-09-24 17:52 | disposition home or self-care (01) ==
LOC: HO.HMCH 16:26
PROVIDERS: PCP Internal Medicine; Visit Provider Internal Medicine
DX: Z00.00 Encounter for general adult medical examination without abnormal findings (principal); E78.00 Pure hypercholesterolemia, unspecified; K29.00 Acute gastritis without bleeding; J45.41 Moderate persistent asthma with (acute) exacerbation; J30.9 Allergic rhinitis, unspecified; G43.909 Migraine, unspecified, not intractable, without status migrainosus; M51.369 Other intervertebral disc degeneration, lumbar region without mention of lumbar back pain or lower extremity pain; M54.16 Radiculopathy, lumbar region; M21.371 Foot drop, right foot; M81.0 Age-related osteoporosis without current pathological fracture; N95.2 Postmenopausal atrophic vaginitis

== ENCOUNTER → 2025-09-24 16:25 | Outpatient (BNVA) | payer OTHER, SELFPAY | PROVIDERS: PCP Internal Medicine; Visit Provider Internal Medicine | DX: Z00.00 Encounter for general adult medical examination without abnormal findings (principal); E78.00 Pure hypercholesterolemia, unspecified; K29.00 Acute gastritis without bleeding; J45.41 Moderate persistent asthma with (acute) exacerbation; G43.909 Migraine, unspecified, not intractable, without status migrainosus; M51.369 Other intervertebral disc degeneration, lumbar region without mention of lumbar back pain or lower extremity pain; M54.16 Radiculopathy, lumbar region; M21.371 Foot drop, right foot; M81.0 Age-related osteoporosis without current pathological fracture; N95.2 Postmenopausal atrophic vaginitis | CPT/HCPCS: 96127 ==